=== PATIENT | male | born 1960 | race Caucasian/White ===

== ENCOUNTER 2021-03-14 02:37 | Outpatient (RCR) | payer OTHER, SELFPAY ==
[2021-03-07] MEDS: Normal Saline Flush 10 ML SYR IVP (10:12)
[2021-03-07] MEDS: Heparin 500 UNITS/5 ML SYRINGE IV (10:12)
[2021-03-07 10:24] LABS: Abs Immature Grans 1.81 10^3/uL (0.0-0.06); HCT 41.6 % (40.0-50.0); HGB 13.4 g/dL (13.5-17.5); MCH 28.5 pg (27.0-33.0); MCHC 32.2 % (32.0-36.0); MCV 88.3 fL (80-95); Nucleated RBC 0 %; Platelet Count 242 10^3/uL (130-400); RBC 4.71 10^6/uL (4.36-5.78); RDW 12.9 % (11.8-14.1); WBC 14.29 10^3/uL (4.4-10.8)
[2021-03-07 10:36] LABS: ALT 40 U/L (16-63); AST 16 U/L (15-37); Albumin 3.7 g/dL (3.4-5.0); Alkaline Phosphatase 112 U/L (46-116); Anion Gap 9.2 mmol/L (3-11); BUN 17 mg/dL (7-18); Bilirubin, Total 0.2 mg/dL (0.2-1.0); CO2 27.8 mmol/L (21.0-32.0); CREATININE 1.1 mg/dL (0.70-1.30); Calcium 9.2 mg/dL (8.5-10.1); Chloride 104 mmol/L (98-107); Glucose 96 mg/dL (74-106); Potassium 4.1 mmol/L (3.5-5.1); Sodium 141 mmol/L (136-145); Total Protein 7.4 g/dL (6.4-8.2)
[2021-03-07 10:49] LABS: Absolute Lymphocyte Count 0.57 10^3/uL (1.2-3.4); Bands % 9
[2021-03-07 10:50] LABS: Absolute Monocyte Count 1.29 10^3/uL (0.1-0.8); Diff Comment Manual Differential; Metamyelocytes % 3; Polychromasia Present
[2021-03-07 11:40] LABS: LDH 197 U/L (85-227)
== END 2021-03-22 23:59 | disposition home or self-care (01) ==
LOC: INF 02:37
PROVIDERS: PCP Emergency Medicine; Visit Provider Nurse Practitioner Adult Health
DX: C83.30 Diffuse large B-cell lymphoma, unspecified site (principal)
CPT/HCPCS: 36591; 80053; 83615; 85025

== ENCOUNTER 2021-04-13 17:26 | Emergency (ER) | payer OTHER, SELFPAY ==
[2021-04-13 17:35] VITALS: BP 153/82; PULSE 68; RESP 28; TEMP 36.1; O2SAT 100
--- NOTE | 2021-04-13 17:50 | ED.GENADUL_ITS ---
Discharge Plan Disposition Patient Disposition: HOME Condition: Stable Discharge Details Clinical Impression: Back pain, Muscle spasm Primary Care Provider: Wilbert Doan ED Provider: Jarrett Briggs Home Meds and New Rx's Prescriptions: New oxycodone 5 mg tablet 5 mg PO Q6H PRNQty: 8 RF: 0 Continued Symbicort 80-4.5 mcg/actuation HFA aerosol inhaler 2 puff IH BID RF: 0 Qvar 8.7 GM aerosol 1 puff Inhalation BID RF: 0 albuterol sulfate [ProAir HFA] 90 mcg/actuation HFA aerosol inhaler 1 - 2 puff Inhalation Q4H PRN Qty: 3 RF: 6 prednisone 20 mg tablet 20 mg PO DAILY Qty: 5 RF: 4 cyclobenzaprine 10 mg tablet 10 mg PO PRN PRNRF: 0 lorazepam 0.5 mg tablet 0.5 mg PO PRN PRNRF: 0 Discharge Instructions Instructions: Muscle Spasm (ED) Additional Instructions: You were likely suffering from muscle spasms that could be due to the new injection medicine you started discuss with your oncologist if you should continue this medicine if you feel more ill, have severe worsening pain or fevers return to the emergency department do not take the flexeril with the oxycodone if you take this medicine Medical Decision Making 60 yo male with hx of lymphoma htn, hld, who comes in with complaints of back muscle spasms. He states yesterday he had his first shot of filgrastim and had some body aches but pushed through it. He again had a shot today and shortly after started to have sharp pains in mid back from lower lumbar region to the upper back. Denies falls or trauma and describes the pain as a spasm. He denies fevers, chills, weakness, chest pain, dyspnea, numbness, difficulty urinating. He has intermittent episodes of pain lasting a few seconds on exam. He has no abdominal tenderness, Clear lungs and no murmurs. He has no visible or palpable deformities of the back. The pain is of the paraspinous muscles and has some tenderness with palpation to them. No cva tenderness. Has no saddle anesthesia. Per up todate filgrastim can have muscle spasms as a side effect in over 5% of patients. His symptoms do seem most consistent with this. His history and exam are not consistent with fracture, osteomyelitis, cauda equina or spinal epidural abscess so do not feel ct, xray or mri indicated at present time. Will check for electrolyte abnormalities and possible rhabdo. He has tried flexeril and ativan (he states the ativan is normally for nausea) without relief so will try a dose of dilaudid. pt's labs show no acute abnormalities, and his pain is now a 0 and has no other symptoms. He is stable for d/c, advised to discuss with his oncologist if he should have another dose of the medicine that may have caused the spasms. Will prescribe short course of oxycodone due to the pain and status as a cancer patient. Return precautions given Differential Diagnosis Differential Diagnosis: muscle spasm, strain, rhabdo Medical Records Medical records reviewed: Yes I reviewed the patient's medical records. Lab Data Lab results reviewed: Yes I reviewed the patient's lab results. HPI General Mode of arrival: ambulatory . Date/Time Provider Initiated Documentation: 04/13/21 17:41 . Limitations to Documentation: no limitations . Information obtained by: patient . History of Present Illness 60 year old M presents to the emergency department with the chief complaint of muscle spasm, described as moderate, Patient reports no radiation. Patient started experiencing this hour(s) (3) and it has been constant. No relieving factors improve symptom(s), No exacerbating factors reported . Patient notes no other symptoms.. Related Data Home Medications Medication Instructions Recorded Confirmed Qvar 1 puff INHALATION BID inhaler 09/26/15 12/25/18 budesonide-formoterol HFA 80 2 puff IH BID 12/25/18 12/25/18 mcg-4.5 mcg/actuation aerosol inhaler albuterol sulfate 90 mcg/actuation 1 - 2 puff INHALATION Q4H PRN #3 09/14/19 aerosol inhaler inhaler prednisone 20 mg tablet 20 mg PO DAILY #5 tab-cap 09/14/19 cyclobenzaprine 10 mg PO PRN PRN 04/13/21 04/13/21 lorazepam 0.5 mg PO PRN PRN 04/13/21 04/13/21 oxycodone 5 mg PO Q6H PRN #8 tab 04/13/21 Previous Rx's Medication Instructions Recorded albuterol sulfate 90 mcg/actuation 1 - 2 puff INHALATION Q4H PRN #3 09/14/19 aerosol inhaler inhaler prednisone 20 mg tablet 20 mg PO DAILY #5 tab-cap 09/14/19 oxycodone 5 mg PO Q6H PRN #8 tab 04/13/21 Allergies Allergy/AdvReac Type Severity Reaction Status Date / Time amoxicillin trihydrate AdvReac Unknown INTOLERANT Verified 12/25/18 09:40 [From Augmentin] potassium clavulanate AdvReac Unknown INTOLERANT Verified 12/25/18 09:40 [From Augmentin] General Stated Complaint: GenMedical HAYLEY: 3 Review of Systems All systems reviewed & are unremarkable except as noted in HPI and below Constitutional Constitutional: Denies chills, Denies fever(s) and Denies weakness Cardiovascular Cardiovascular: Denies chest pain and Denies dyspnea Respiratory Respiratory: Denies cough and Denies dyspnea Gastrointestinal Gastrointestinal: Denies abdominal pain, Denies nausea and Denies vomiting Musculoskeletal Musculoskeletal: Denies joint swelling Neurologic Neurologic: Denies weakness Psychiatric Psychiatric: Denies depression PFSH Medical History (Updated 04/13/21 @ 19:37 by Jarrett Briggs MD) Hyperlipidemia Hypertension Surgical History (Updated 12/21/18 @ 16:54 by Sherry Hoskins) Bronchoscopy (09/27/14) Repair of umbilical hernia Rotator Cuff Repair LEFT X 2 Social History Smoking/Tobacco Use Status: Former Tobacco Use Smoking risk assessment performed?: Yes Alcohol Intake: never Drug use: Never Substance use type: does not use Do you feel safe at home: Yes Do you feel safe in your relationship?: Yes Exam Const General: other (in pain) Orientation: alert HENMT Head: normal to inspection Ears: external ears normal General nose exam: external nose normal Mouth: moist mucous membranes Eyes General: appearance normal, both eyes and all related structures Neck Neck: normal visual inspection Resp Effort & Inspection: normal respiratory effort and able to speak in complete sentences Cardio Rate: regular rate GI Palpation: soft and nontender Back/Spine/Pelvis Back: no CVA tenderness Skin General skin exam: no rashes or lesions noted Neuro General: patient alert and patient oriented x3 Extrem General: normal to inspection Psych Mental Status: mental status grossly normal Course Vital Signs Vital signs: Vital Signs Temperature 36.1 C L 04/13/21 17:35 Pulse 68 04/13/21 17:35 Respiratory Rate 28 H 04/13/21 17:35 Blood Pressure 153/82 H 04/13/21 17:35 Pulse Oximetry 100 04/13/21 17:35 Temperature 36.1 C L 04/13/21 17:35 Temperature Source Temporal Artery Scan 04/13/21 17:35 Pulse 68 04/13/21 17:35 Respiratory Rate 28 H 04/13/21 17:35 Respiratory Depth Normal 04/13/21 17:47 Respiratory Pattern Tachypnea 04/13/21 17:47 Blood Pressure 153/82 H 04/13/21 17:35 Blood Pressure Position Supine 04/13/21 17:35 Pulse Oximetry 100 04/13/21 17:35 Oxygen Delivery Method Room Air 04/13/21 17:35 Oxygen Flow Rate 0 04/13/21 17:35 Pain Level 04/13/21 17:35
[2021-04-13] MEDS: Normal Saline 1,000 ML 1000 ML IV (18:13)
[2021-04-13] MEDS: HYDROmorphone 2 MG/ML VIAL 1 MG IVP ×2 (18:17→18:56)
[2021-04-13 18:18] LABS: HCT 34.2 % (40.0-50.0); HGB 11.1 g/dL (13.5-17.5); MCH 28.3 pg (27.0-33.0); MCHC 32.5 % (32.0-36.0); MCV 87.2 fL (80-95); MPV 13.3 fL (8.0-11.0); Nucleated RBC 2 %; Platelet Count 161 10^3/uL (130-400); RBC 3.92 10^6/uL (4.36-5.78); RDW 16.4 % (11.8-14.1); RDW-SD 51.8 fL; WBC 3.12 10^3/uL (4.4-10.8)
[2021-04-13 18:46] LABS: ALT 22 U/L (16-63); AST 18 U/L (15-37); Albumin 3.3 g/dL (3.4-5.0); Alkaline Phosphatase 87 U/L (46-116); Anion Gap 8.7 mmol/L (3-11); BUN 13 mg/dL (7-18); Bilirubin, Total 0.8 mg/dL (0.2-1.0); CO2 27.3 mmol/L (21.0-32.0); CREATININE 0.9 mg/dL (0.70-1.30); Calcium 8.8 mg/dL (8.5-10.1); Chloride 107 mmol/L (98-107); Creatine Kinase 31 U/L (39-308); Glucose 80 mg/dL (74-106); Magnesium 1.7 mg/dL (1.8-2.4); Potassium 3.7 mmol/L (3.5-5.1); Sodium 143 mmol/L (136-145); Total Protein 6.5 g/dL (6.4-8.2)
[2021-04-13] MEDS: Ketorolac 15 MG/ML VIAL IVP (18:56)
[2021-04-13 19:12] LABS: Absolute Neutrophil Count 0.59 10^3/uL (1.2-6.7); Atypical Lymphocytes % 2; Bands % 3
[2021-04-13 19:13] LABS: Absolute Basophil Count 0.12 10^3/uL (0.0-0.2); Absolute Eosinophil Count 0.28 10^3/uL (0.0-0.7); Absolute Lymphocyte Count 1.53 10^3/uL (1.2-3.4); Absolute Monocyte Count 1.47 10^3/uL (0.1-0.8)
[2021-04-13 19:14] LABS: Anisocytosis 1+; Basophilic Stippling 1+; Diff Comment Manual Differential; Polychromasia Present
[2021-04-13] MEDS: Heparin 500 UNITS/5 ML SYRINGE (20:15)
[2021-04-13] MEDS: Normal Saline-STERILE FIELD 0.9% 10 ML SYR (20:15)
[2021-04-13] MEDS: Ondansetron O.D.T. 4 MG TABEF, 3 TABS/BTL 12 MG (20:16)
[2021-04-13 20:17] VITALS: BP 153/82; PULSE 68; RESP 28; TEMP 36.1; O2SAT 100
== END 2021-04-13 19:50 | disposition home or self-care (01) ==
PROVIDERS: Emergency Provider Emergency Medicine; PCP Emergency Medicine
DX: M62.830 Muscle spasm of back (principal); M54.6 Pain in thoracic spine
CPT/HCPCS: 80053; 82550; 96361; 96374; 96375; 96376; 99284; 83735; 85025; 99283; J1885

== ENCOUNTER 2021-04-18 03:45 | Outpatient (RCR) | payer OTHER, SELFPAY ==
[2021-04-04] MEDS: Normal Saline Flush 10 ML SYR IVP (07:10)
[2021-04-04 07:17] LABS: HCT 36.6 % (40.0-50.0); HGB 11.8 g/dL (13.5-17.5); MCH 28.4 pg (27.0-33.0); MCHC 32.2 % (32.0-36.0); MCV 88.2 fL (80-95); MPV 13.5 fL (8.0-11.0); Nucleated RBC 0 %; RBC 4.15 10^6/uL (4.36-5.78); RDW 15.7 % (11.8-14.1); RDW-SD 46.6 fL; WBC 5.83 10^3/uL (4.4-10.8)
[2021-04-04 07:38] LABS: ALT 25 U/L (16-63); AST 19 U/L (15-37); Albumin 3.4 g/dL (3.4-5.0); Alkaline Phosphatase 83 U/L (46-116); Anion Gap 8.2 mmol/L (3-11); BUN 18 mg/dL (7-18); Bilirubin, Total 0.4 mg/dL (0.2-1.0); CO2 26.8 mmol/L (21.0-32.0); CREATININE 0.8 mg/dL (0.70-1.30); Chloride 106 mmol/L (98-107); Glucose 118 mg/dL (74-106); LDH 210 U/L (85-227); Sodium 141 mmol/L (136-145); Total Protein 6.9 g/dL (6.4-8.2)
[2021-04-04 07:59] LABS: Absolute Lymphocyte Count 0.12 10^3/uL (1.2-3.4); Absolute Monocyte Count 0.52 10^3/uL (0.1-0.8); Absolute Neutrophil Count 5.01 10^3/uL (1.2-6.7); Atypical Lymphocytes % 1; Bands % 10; Metamyelocytes % 3
[2021-04-04 08:00] LABS: Diff Comment Manual Differential; Platelet Count 153 10^3/uL (130-400); RBC Morphology Normal
[2021-04-11] MEDS: Normal Saline Flush 10 ML SYR IVP (08:37)
[2021-04-11 09:07] LABS: Abs Immature Grans 0.06 10^3/uL (0.0-0.06); HCT 35.5 % (40.0-50.0); HGB 11.6 g/dL (13.5-17.5); MCH 28.5 pg (27.0-33.0); MCHC 32.7 % (32.0-36.0); MCV 87.2 fL (80-95); Nucleated RBC 0 %; Platelet Count 162 10^3/uL (130-400); RBC 4.07 10^6/uL (4.36-5.78); RDW-SD 51.3 fL
[2021-04-11 09:20] LABS: ALT 24 U/L (16-63); AST 16 U/L (15-37); Albumin 3.4 g/dL (3.4-5.0); Alkaline Phosphatase 83 U/L (46-116); BUN 12 mg/dL (7-18); Bilirubin, Total 0.7 mg/dL (0.2-1.0); CREATININE 0.9 mg/dL (0.70-1.30); Calcium 8.9 mg/dL (8.5-10.1); Chloride 107 mmol/L (98-107); Glucose 120 mg/dL (74-106); LDH 163 U/L (85-227); Potassium 3.6 mmol/L (3.5-5.1); Sodium 143 mmol/L (136-145); Total Protein 6.7 g/dL (6.4-8.2)
[2021-04-11 09:25] LABS: WBC 1.35 10^3/uL (4.4-10.8)
[2021-04-11 09:42] LABS: Bands % 1
[2021-04-11 09:43] LABS: Absolute Eosinophil Count 0.11 10^3/uL (0.0-0.7); Absolute Lymphocyte Count 0.23 10^3/uL (1.2-3.4); Absolute Monocyte Count 0.81 10^3/uL (0.1-0.8); Atypical Lymphocytes % 3
[2021-04-11 09:47] LABS: Anisocytosis 1+; Basophilic Stippling 1+; Diff Comment Manual Differential
[2021-04-18] MEDS: Normal Saline Flush 10 ML SYR IVP (08:33)
[2021-04-18 08:46] LABS: Abs Immature Grans 0.23 10^3/uL (0.0-0.06); Absolute Basophil Count 0.05 10^3/uL (0.0-0.2); Absolute Eosinophil Count 0.16 10^3/uL (0.0-0.7); Absolute Lymphocyte Count 0.54 10^3/uL (1.2-3.4); Absolute Monocyte Count 1.45 10^3/uL (0.1-0.8); Eosinophils % 3.3; HCT 37.2 % (40.0-50.0); HGB 12.1 g/dL (13.5-17.5); Immature Grans % 4.8; Lymphocytes % 11.2; MCH 28.4 pg (27.0-33.0); MCHC 32.5 % (32.0-36.0); MCV 87.3 fL (80-95); MPV 12.4 fL (8.0-11.0); Neutrophils % 49.7; Nucleated RBC 0 %; Platelet Count 171 10^3/uL (130-400); RBC 4.26 10^6/uL (4.36-5.78); RDW 16.2 % (11.8-14.1); RDW-SD 51.7 fL; WBC 4.83 10^3/uL (4.4-10.8)
[2021-04-18 08:58] LABS: ALT 28 U/L (16-63); AST 22 U/L (15-37); Albumin 3.3 g/dL (3.4-5.0); Alkaline Phosphatase 89 U/L (46-116); BUN 16 mg/dL (7-18); Bilirubin, Total 0.5 mg/dL (0.2-1.0); CREATININE 0.8 mg/dL (0.70-1.30); Calcium 8.8 mg/dL (8.5-10.1); Chloride 106 mmol/L (98-107); Glucose 112 mg/dL (74-106); Sodium 142 mmol/L (136-145); Total Protein 6.7 g/dL (6.4-8.2)
== END 2021-04-22 23:59 | disposition home or self-care (01) ==
LOC: INF 03:45
PROVIDERS: PCP Emergency Medicine; Visit Provider Nurse Practitioner Adult Health
DX: C83.39 Diffuse large B-cell lymphoma, extranodal and solid organ sites (principal); Z45.2 Encounter for adjustment and management of vascular access device
CPT/HCPCS: 36591; 80053; 83615; 85025

== ENCOUNTER 2021-05-03 01:38 | Outpatient (RCR) | payer OTHER, SELFPAY ==
[2021-05-03] MEDS: Normal Saline Flush 10 ML SYR IVP (08:16)
[2021-05-03] MEDS: Heparin 500 UNITS/5 ML SYRINGE IV (08:17)
[2021-05-03 08:36] LABS: Abs Immature Grans 0.99 10^3/uL (0.0-0.06); HCT 33.8 % (40.0-50.0); HGB 11.2 g/dL (13.5-17.5); MCH 28.7 pg (27.0-33.0); MCHC 33.1 % (32.0-36.0); MCV 86.7 fL (80-95); MPV 11.6 fL (8.0-11.0); Nucleated RBC 0 %; RDW 15.9 % (11.8-14.1); RDW-SD 48.6 fL
[2021-05-03 08:54] LABS: Albumin 3.3 g/dL (3.4-5.0); BUN 11 mg/dL (7-18); Calcium 8.9 mg/dL (8.5-10.1); Glucose 115 mg/dL (74-106)
[2021-05-03 08:55] LABS: ALT 25 U/L (16-63); AST 13 U/L (15-37); Alkaline Phosphatase 96 U/L (46-116); Anion Gap 8.9 mmol/L (3-11); Bilirubin, Total 0.5 mg/dL (0.2-1.0); CO2 27.1 mmol/L (21.0-32.0); Chloride 104 mmol/L (98-107); LDH 226 U/L (85-227); Potassium 4.1 mmol/L (3.5-5.1); Sodium 140 mmol/L (136-145)
[2021-05-03 09:23] LABS: Absolute Neutrophil Count 6.69 10^3/uL (1.2-6.7); Bands % 3; Platelet Count 340 10^3/uL (130-400)
[2021-05-03 09:24] LABS: Absolute Basophil Count 0.18 10^3/uL (0.0-0.2); Absolute Eosinophil Count 0.09 10^3/uL (0.0-0.7); Absolute Lymphocyte Count 0.35 10^3/uL (1.2-3.4); Absolute Monocyte Count 0.97 10^3/uL (0.1-0.8); Basophilic Stippling Present; Diff Comment Manual Differential; Metamyelocytes % 6; Polychromasia Present
== END 2021-05-22 23:59 | disposition home or self-care (01) ==
LOC: INF 01:38
PROVIDERS: PCP Emergency Medicine; Visit Provider Nurse Practitioner Adult Health
DX: C83.39 Diffuse large B-cell lymphoma, extranodal and solid organ sites (principal)
CPT/HCPCS: 36591; 80053; 83615; 85025

== ENCOUNTER 2022-11-12 07:08 | Emergency (ER) | payer BC, SELFPAY ==
[2022-11-12 07:11] VITALS: BP 120/89; PULSE 50; RESP 20; TEMP 37.3; O2SAT 98
--- NOTE | 2022-11-12 07:15 | DI.CT_ITS ---
Exam(s) CT CHEST PE CTA EXAM: CT CHEST PE CTA CLINICAL HISTORY: cough, sob, hx NH Lymphoms, r/o pneumonia/PE. TECHNIQUE: Imaging Protocol: Axial CT angiography was performed with multi-slice acquisition and mu lti-planar and/or 3D reconstructions. CONTRAST MATERIAL: Intravenous: Omnipaque 350 contrast volume:100 mL COMPARISON: CT ABD PELVIS WITH CONTRAST from 06/12/2011 CT CHEST HIGH RESOLUTION from 09/08/2014 FINDINGS: Tracheobronchial tree: Patent where visualized. Pulmonary parenchyma: No consolidation or dominant measurable mass. There are calcified granuloma pre sent. The patient has had a prior lobectomy. Pulmonary Arteries: No evidence of filling defect to suggest pulmonary emboli. Mediastinum and [place]: No dominant adenopathy or fluid collection. The esophagus is unremarkable. Visualized thyroid gland: Unremarkable. Pleura: No effusion or pneumothorax. Heart: The heart is not dilated. Moderate coronary artery calcification is present. No pericardial e ffusion. Aorta: Thoracic aorta non-dilated. No evidence of dissection. Upper abdomen: Unremarkable. Soft tissues: Unremarkable. Bones: Within normal limits for the patient's age. IMPRESSION: 1. No evidence of pulmonary embolism, thoracic aortic dissection or aneurysm. 2. Findings were discussed with the emergency department at 9:12 a.m. on 11/12/2022. RADIATION DOSE DELIVERED: 506.5mGy.cm Total DLP DATA REPOSITORY: All CT scans at this facility are submitted to the National Radiology Data Registry (NRDR) Dose Index Registry (DIR) with the [employer] (A[employer]). RADIATION OPTIMIZATION: All CT scans at this facility use at least one of these dose optimization te chniques: automated exposure control; mA and/or kV adjustment per patient size (includes targeted exa ms where dose is matched to clinical indication); or iterative reconstruction.
--- NOTE | 2022-11-12 07:15 | RT.EKG_ITS ---
APPROVED REPORT Exam: Resting ECG Reason for Exam: sob Patient Location: E HR:65 bpm ECG Measurements Heart Rate 65 AXIS SC 158 P 51 QRSd 102 QRS -14 QT 398 T 141 QTc 396 Conclusion Sinus bradycardia...rate< 60 Multiple ventricular premature complexes...V complexes w/ short R-R intervls Nonspecific repol abnormality, lateral leads...ST dep, T neg, I aVL V5 V6 Physicianb: no stemi
[2022-11-12] MEDS: Albuterol/Ipratropium 3 ML UPD VIAL UPD (07:31)
--- NOTE | 2022-11-12 07:37 | W.ED.GENAD ---
Discharge Plan Discharge Details Chief Complaint: RespSymp Clinical Impression: Cough, Acute dyspnea Primary Care Provider: Rayray Rojas ED Provider: Garcia Valero Home Meds and New Rx's Prescriptions: No Action Symbicort 80-4.5 mcg/actuation HFA aerosol inhaler 2 puff IH BID Qvar 8.7 GM aerosol 1 puff Inhalation BID albuterol sulfate [ProAir HFA] 90 mcg/actuation HFA aerosol inhaler 1 - 2 puff Inhalation Q4H PRN Qty: 3 6RF prednisone 20 mg tablet 20 mg PO DAILY Qty: 5 4RF Rx Instructions: not taking anymore cyclobenzaprine 10 mg tablet 10 mg PO PRN PRN lorazepam 0.5 mg tablet 0.5 mg PO PRN PRN Patient Comments: TAKE 1 TABLET BY MOUTH EVERY 6 HOURS NEEDED FOR NAUSEA Rx Instructions: not taking anymore oxycodone 5 mg tablet 5 mg PO Q6H PRNQty: 8 0RF Rx Instructions: not taking anymore Dupixent Pen 300 mg/2 mL pen injector See Rx Instructions .ROUTE .COMPLEX Rx Instructions: 300 mg subcutaneously bi-weekly Medical Decision Making This is a very pleasant 62-year-old male with a past medical history of being a previous smoker, but having quit over 12 years ago, non-Hodgkin's lymphoma which was treated with chemotherapy and is in remission. He presents today for evaluation of cough, shortness of breath and fever. States that these symptoms have been present for the last few days. He denies noting significant productive with the cough. He does admit to pain with breathing which she describes as feeling like there is still wall in his lungs. He denies history of blood clot or PE. He denies any history of heart attack. He denies any tearing or ripping sensation in his chest. He denies any heaviness in his chest. No other complaints at this time. Patient's is sick with similar mild upper respiratory infection. Patient has received his COVID booster within the last 6 months. Exam demonstrates well-appearing male, vital signs stable. Mildly elevated temperature at 37.3, no hypoxemia. Lungs demonstrate mild wheeze with mild rhonchi. No calf tenderness. EKG shows no evidence of STEMI. Concern for PE and pneumonia. We will get CTA, laboratory work-up, evaluate for cardiac etiology, give a breathing treatment, monitor closely and reassess. Case will be signed out to my colleague Dr. Krishna for follow-up on labs and imaging. HPI General Date/Time Provider Initiated Documentation: 11/12/22 07:18. HPI Narrative: This is a very pleasant 62-year-old male with a past medical history of non-Hodgkin's lymphoma which was treated with chemotherapy and is in remission. He presents today for evaluation of cough, shortness of breath and fever. States that these symptoms have been present for the last few days. He denies noting significant productive with the cough. He does admit to pain with breathing which she describes as feeling like there is still wall in his lungs. He denies history of blood clot or PE. He denies any history of heart attack. He denies any tearing or ripping sensation in his chest. He denies any heaviness in his chest. No other complaints at this time. Patient's is sick with similar mild upper respiratory infection. Patient has received his COVID booster within the last 6 months. Related Data Home Medications Medication Instructions Recorded Confirmed beclomethasone dipropionate 40 1 puff inhalation BID 09/26/15 12/25/18 mcg/actuation aerosol inhaler (Qvar) budesonide-formoterol HFA 80 2 puff inhalation BID 12/25/18 12/25/18 mcg-4.5 mcg/actuation aerosol inhaler (Symbicort) albuterol sulfate 90 mcg/actuation 1 - 2 puff inhalation Q4H PRN ##3 09/14/19 11/12/22 aerosol inhaler (ProAir HFA) prednisone 20 mg tablet 20 mg PO DAILY #5 tab-caps 09/14/19 cyclobenzaprine 10 mg tablet 10 mg PO PRN PRN 04/13/21 04/13/21 lorazepam 0.5 mg tablet 0.5 mg PO PRN PRN 04/13/21 04/13/21 oxycodone 5 mg tablet 5 mg PO Q6H PRN #8 tabs 04/13/21 dupilumab 300 mg/2 mL subcutaneous See Rx Instructions .Route .COMPLEX 11/12/22 11/12/22 pen injector (Dupixent) Previous Rx's Medication Instructions Recorded albuterol sulfate 90 mcg/actuation 1 - 2 puff inhalation Q4H PRN ##3 09/14/19 aerosol inhaler (ProAir HFA) prednisone 20 mg tablet 20 mg PO DAILY #5 tab-caps 09/14/19 oxycodone 5 mg tablet 5 mg PO Q6H PRN #8 tabs 04/13/21 Allergies Allergy/AdvReac Type Severity Reaction Status Date / Time amoxicillin trihydrate AdvReac Unknown INTOLERANT Verified 11/12/22 07:19 [From Augmentin] potassium clavulanate AdvReac Unknown INTOLERANT Verified 11/12/22 07:19 [From Augmentin] General Stated Complaint: RespSymp HAYLEY: 3 Review of Systems All systems reviewed & are unremarkable except as noted in HPI and below PFSH All Active Problems Back pain (Acute) Muscle spasm (Acute) Cough (Acute) Acute dyspnea (Acute) Acne rosacea (Acute) Hearing loss (Acute) diminished hearing History of bronchoscopy (Acute) History of umbilical hernia repair (Acute 07/25/15) Hyperlipidemia (Acute) Hypertension (Acute) 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 Unknown, if any, significance Pneumonitis (Acute 02/17/15) idiopathic extensive workup Sciatica (Acute) recurrent left sided sciatica Status post rotator cuff repair (Acute) Medical History Hyperlipidemia Hypertension Surgical History Bronchoscopy (09/27/14) Repair of umbilical hernia Rotator Cuff Repair LEFT X 2 Social History Smoking/Tobacco Use Status: Former Tobacco Use Smoking risk assessment performed?: Yes Alcohol Intake: never Drug use: Never Substance use type: does not use Do you feel safe at home: Yes Do you feel safe in your relationship?: Yes Additional Social history: at bedside Exam Narrative Exam Narrative: 1.Const: Well-nourished, Well-developed, appearing stated age 2.Eyes: PERRL, no conjunctival injection, and symmetrical lids. 3.ENT: Atraumatic external nose and ears. Moist MM. Neck: Symmetric, trachea midline, No thyromegaly. 4.CVS: +S1/S2, No murmurs or gallops. Peripheral pulses 2+ and equal in all extremities. Brisk capillary refill in all extremities. 5.RESP: Unlabored respiratory effort. Mild scattered wheeze, mild scattered rhonchi. 6.GI: Soft, Nontender/Nondistended, No hepatosplenomegaly. No guarding or rebound. 7.MSK: Normocephalic/Atraumatic, Extremities w/o deformity or ttp No cyanosis or clubbing, Normal movement of all extremities 8.Skin: Warm, Dry. No rashes or lesions. 9.Neuro: airframe technician II-XII grossly intact. Sensation grossly intact, no focal neurologic deficits. 10.Psych: (AAO) x3. Appropriate mood and affect Course Vital Signs Vital signs: Vital Signs Temperature 37.3 C 11/12/22 07:11 Pulse 50 L 11/12/22 07:11 Respiratory Rate 20 11/12/22 07:11 Blood Pressure 120/89 11/12/22 07:11 Pulse Oximetry 98 11/12/22 07:11 Temperature 37.3 C 11/12/22 07:11 Temperature Source Oral 11/12/22 07:11 Pulse 50 L 11/12/22 07:11 Respiratory Rate 20 11/12/22 07:11 Respiratory Effort Short of Breath 11/12/22 07:32 Respiratory Depth Normal 11/12/22 07:23 Blood Pressure 120/89 11/12/22 07:11 Blood Pressure Position Sitting 11/12/22 07:11 Pulse Oximetry 98 11/12/22 07:11 Oxygen Delivery Method Room Air 11/12/22 07:11 Oxygen Flow Rate 0 11/12/22 07:11 Pain Level 4 11/12/22 07:11 Lab/Test Results Lab/Test Results: 11/12/22 07:26 Blood Blood Culture - Pending 11/12/22 07:26 Blood Blood Culture - Pending
[2022-11-12 07:56] LABS: BE (Venous) 4 mmol/L (-2-3); HCO3 (Venous) 28 mmol/L (23-28); O2 Sat (Venous) 68 %; TCO2 (Venous) 24 mmol/L (24-29); pCO2 (Venous) 39 mmHg (41-51); pH (Venous) 7.46 (7.31-7.41); pO2 (Venous) 32 mmHg
[2022-11-12 07:58] LABS: Abs Immature Grans 0.02 10^3/uL (0.0-0.06); Absolute Basophil Count 0.02 10^3/uL (0.0-0.2); Absolute Eosinophil Count 0.02 10^3/uL (0.0-0.7); Absolute Lymphocyte Count 0.68 10^3/uL (1.2-3.4); Absolute Monocyte Count 0.78 10^3/uL (0.1-0.8); Basophils % 0.3; Eosinophils % 0.3; HCT 46.3 % (40.0-50.0); Immature Grans % 0.3; Lymphocytes % 9.3; MCH 29.9 pg (27.0-33.0); MCHC 34.6 % (32.0-36.0); MCV 87 fL (80-95); MPV 11.3 fL (8.0-11.0); Monocytes % 10.7; Neutrophils % 79.1; Platelet Count 210 10^3/uL (130-400); RBC 5.35 10^6/uL (4.36-5.78); RDW-SD 40.9 fL; WBC 7.32 10^3/uL (4.4-10.8)
[2022-11-12 08:01] VITALS: PULSE 80; RESP 8; O2SAT 99
[2022-11-12 08:11] LABS: PTT Activated 23.4 sec (21.5-31.9); Prothrombin Time 10.5 sec (9.3-11.0)
[2022-11-12 08:19] LABS: ALT 24 U/L (16-63); AST 25 U/L (15-37); Albumin 3.8 g/dL (3.4-5.0); Alkaline Phosphatase 96 U/L (46-116); Anion Gap 8.7 mmol/L (3-11); BUN 16 mg/dL (7-18); Bilirubin, Total 1.1 mg/dL (0.2-1.0); CO2 27.3 mmol/L (21.0-32.0); CREATININE 1.1 mg/dL (0.70-1.30); Calcium 9.1 mg/dL (8.5-10.1); Chloride 102 mmol/L (98-107); Estimated GFR 74.96 (mL/min/1.73m2); Glucose 113 mg/dL (74-106); NT-proBNP 632 pg/mL (<300); Potassium 3.9 mmol/L (3.5-5.1); Sodium 138 mmol/L (136-145); Total Protein 7.7 g/dL (6.4-8.2); Troponin I < 50 ng/L (<or=60)
[2022-11-12 08:26] VITALS: PULSE 75; O2SAT 95
[2022-11-12 08:38] LABS: COVID-19 PCR Negative (Negative); Influenza A PCR Negative (Negative); Influenza B PCR Negative (Negative); RSV PCR Negative (Negative)
[2022-11-12 08:39] LABS: Source Nasopharynx
[2022-11-12] MEDS: Omnipaque 350 MG/ML 500 ML BTL-Imaging package IJ (08:44)
[2022-11-12] MEDS: Normal Saline - Diluent 50 ML VIAL IJ (08:44)
--- NOTE | 2022-11-12 09:20 | ED.PROG_ITS ---
Date of service: 11/12/22 Time of Service: 09:20 Medical Decision Making 62-year-old gentleman with history of asthma presents with cough and shortness of breath. Signed out to me pending CT chest and remainder of labs. Labs unremarkable and CT chest also unremarkable. Likely has a viral syndrome causing an asthma exacerbation. Offered him steroids and patient is agreeable to taking this. Says he still has his as needed inhalers at home. Doubt other causes of his symptoms. Will discharge with return precautions. Imaging Data Radiologic Study: Attestation: I personally reviewed and interpreted this imaging study as follows: Imaging: CT Scan (chest) Radiologist's impression: IMPRESSION: 1. No evidence of pulmonary embolism, thoracic aortic dissection or aneurysm.? 2. Findings were discussed with the emergency department at 9:12 a.m. on 11/12/2022. Lab Data Lab results reviewed: Yes I reviewed the patient's lab results. ECG Data Attestation: I personally reviewed and interpreted this ECG (s) as follows: Prior ECG tracings: available for review Interpretation: Normal sinus and otherwise unremarkable EKG Sign Out Sign Out Data: Sign Out Comment: Cough, shortness of breath, previous cancer patient. Follow- up on CTA and labs for potential pneumonia versus PE Last updated by Garcia Valero DO at 11/12/22 07:43 Discharge Plan Disposition Patient Disposition: Home Condition: Good Discharge Details Clinical Impression: Cough, Acute dyspnea, Acute viral syndrome, Asthma exacerbation Primary Care Provider: Rayray Rojas ED Provider: Dwight Briggs Home Meds and New Rx's Prescriptions: New prednisone 50 mg tablet 50 mg PO DAILY 5 Days Qty: 5 0RF Continued Symbicort 80-4.5 mcg/actuation HFA aerosol inhaler 2 puff IH BID Qvar 8.7 GM aerosol 1 puff Inhalation BID albuterol sulfate [ProAir HFA] 90 mcg/actuation HFA aerosol inhaler 1 - 2 puff Inhalation Q4H PRN Qty: 3 6RF cyclobenzaprine 10 mg tablet 10 mg PO PRN PRN lorazepam 0.5 mg tablet 0.5 mg PO PRN PRN Patient Comments: TAKE 1 TABLET BY MOUTH EVERY 6 HOURS NEEDED FOR NAUSEA Rx Instructions: not taking anymore oxycodone 5 mg tablet 5 mg PO Q6H PRNQty: 8 0RF Rx Instructions: not taking anymore Dupixent Pen 300 mg/2 mL pen injector See Rx Instructions .ROUTE .COMPLEX Rx Instructions: 300 mg subcutaneously bi-weekly Discontinued prednisone 20 mg tablet 20 mg PO DAILY Qty: 5 4RF Rx Instructions: not taking anymore Discharge Instructions Instructions: Asthma (ED), Viral Syndrome (ED) Additional Instructions: You were seen in the emergency department for cough and shortness of breath. We performed labs, EKG, CAT scan your chest that were unremarkable. You likely have a viral syndrome causing an asthma exacerbation. We have prescribed you a course of steroids. Take your as needed inhaler as prescribed. If using this more frequently than every 4 hours or if you have worsening shortness of breath or chest pain you should return right back to the emergency department. Otherwise follow-up with your primary care doctor.
[2022-11-12 09:36] VITALS: BP 128/80; PULSE 75; RESP 19; TEMP 36.8; O2SAT 99
--- NOTE | 2022-11-12 15:04 | NUR.NOTE ---
Nursing Note: Accessed pt chart to see if he was admitted or discharged. Lab called asking due to outstanding orders. They will cancel them.
== END 2022-11-12 09:39 | disposition home or self-care (01) ==
PROVIDERS: Student in an Organized Health Care Education/Training Program; Emergency Provider Student in an Organized Health Care Education/Training Program; PCP Nurse Practitioner Family
DX: R06.09 Other forms of dyspnea (principal); R05.1 Acute cough; R06.02 Shortness of breath; Z87.891 Personal history of nicotine dependence; Z85.72 Personal history of non-Hodgkin lymphomas
CPT/HCPCS: 36415; 71275; 80053; 82805; 87040; 87637; 93005; 94640; 99285; 81003; 83880; 84484; 85025; 85610; 85730; 93010; 99284; J7620

== ENCOUNTER 2023-05-19 07:12 | Day surgery (SDC) | payer BC, SELFPAY ==
--- NOTE | 2023-05-18 16:55 | W.PM.DSUDISC ---
Date of service: 05/19/23 Time of Service: 09:28 Discharge Plan Disposition Patient Disposition: Home Condition: Good Discharge Details Reason For Visit: Screening colonoscopy Attending Provider: Harpal Onofre Primary Care Provider: Rayray Rojas Home Meds and New Rx's Prescriptions: Continued loratadine [Claritin] 10 mg tablet 10 mg PO DAILY gabapentin 300 mg capsule 600 mg PO TID Qty: 120 3RF famotidine 40 mg tablet 40 mg PO DAILY Qty: 60 11RF albuterol sulfate [ProAir HFA] 90 mcg/actuation HFA aerosol inhaler 1 - 2 puff Inhalation Q4H PRN Qty: 3 6RF Discontinued bisacodyl [Dulcolax (bisacodyl)] 5 mg tablet,delayed release (DR/EC) 5 mg PO ONCE Qty: 4 0RF Rx Instructions: Take per colonoscopy instructions provided by ordering providers office polyethylene glycol 3350 17 gram/dose powder 17 g PO ONCE Qty: 238 0RF Rx Instructions: Take per colonoscopy instructions provided by ordering providers office Discharge Instructions Instructions: Colorectal Polyps (GEN) Additional Instructions: Jani, we were able to complete your colonoscopy today without any difficulty. Your prep was excellent. I did find 2 small polyps. I removed these both completely. They do not worry me at all. I will send them off to be tested by the pathologist to find out the nature of the polyps. Once I have that information, I will be in touch with recommendations for your next colonoscopy. If you have any questions in the meantime, please do not hesitate to call at any point 1. If tolerated, consume a soft, low fiber diet for 1-2 days. [address] Do not drive, drink alcohol, operate machinery, make critical decisions, or do activities that require coordination or balance for 24 hours. 3. Because air was put into your colon during the procedure, expelling air from your rectum (passing gas or farting) is normal. 4. You may not have a bowel movement for 1-3 days because of the colonoscopy prep. This is normal. 5. Go directly to the emergency room if you notice any of the following: Develop chills (warm to touch), or if you have a thermometer and your temperature is above 101 Difficulty breathing or difficultly swallowing Persistent vomiting Severe abdominal pain, other than gas cramps Severe chest pain Black, tarry stools Any bleeding ? exceeding one tablespoon 6. Call your physician if the site where your intravenous was started becomes red, swollen, painful, and warm to touch. 7. Your physician has reviewed your pre-procedure medications. Please continue to take those medications as previously ordered. You will be given specific information/education regarding any changes to your medications before leaving. Activity:: Activity as Tolerated Diet:: As Tolerated Discharge Orders Discharge Orders: Discharge Order (Routine); Ordered 05/18/23 Ordered By: Harpal Onofre DS: Diagnosis Discharge Diagnosis (1) Encounter for screening colonoscopy: Status: Acute Asessment and Plan: I will follow-up on polypectomy results
--- NOTE | 2023-05-18 16:58 | W.COLOREPORT ---
Date of service: 05/19/23 Time of Service: 09:33 Colonoscopy Report Date of procedure: 05/19/23 Pre-op diagnosis general: screening colonoscopy Post-op diagnosis procedure note: other (Colon polyps) Procedure: Colonoscopy with polypectomy Surgeon: Harpal Onofre Anesthesia Type: General:No Airway Estimated blood loss (mL): 10 Pathology: other (0.25 cm polyp at 90 cm, 0.25 cm polyp at 40 cm) Complications: None Disposition: same day Indications: Jani is 62 years old and he is here for his next screening colonoscopy as part of routine health maintenance. Prep: Miralax/Dulcolax Procedure Start Time: 08:57 Procedure End Time: 09:14 Retraction Time: 13 Findings: 0.25 cm polyp at 90 cm, 0.25 cm polyp at 40 cm Procedure Description: After the induction of monitored anesthetic care, and with the patient in left lateral decubitus position, I began by performing an external anorectal exam.? Perineum and skin were normal, as was the anal verge.? There was no evidence of external hemorrhoids.? Next, I performed a digital rectal exam.? I did not appreciate any abnormal findings.? Next, I advanced a colonoscope into the rectal vault.? I performed retroflexion.? This appeared normal.? Using insufflation, I then advanced the colonoscope beyond the rectal folds and into the sigmoid colon before advancing towards the cecum.? The quality of the prep was excellent.? The scope was noted to be in the cecum by identification of the ileocecal valve and appendiceal orifice.? I then began withdrawing the colonoscope using repeated irrigation as necessary for full evaluation of the colonic mucosa. Around 90 cm from the anal verge I identified a 0.25 cm polyp. ?It appeared sessile in character. ?I was able to remove this with a cold forcep polypectomy. ?I examined the site, and there was minimal bleeding. ?Once this was completed, I continued to withdraw the scope and examine the remainder of the colonic mucosa. ?I also found a 0.25 cm polyp at 40 cm from the anus. This was also removed with cold forceps. This polyp also appeared sessile in character. There was minimal bleeding from the polypectomy site. Once the scope was withdrawn to the level of the rectum, great care was taken to examine portions of the rectal folds.? Finally, the scope was withdrawn and the patient was brought to the same-day surgery recovery unit as the anesthetic wore off. ?The findings and instructions were shared with the patient prior to discharge. [place] Bowel Prep [place] Bowel Prep Right Colon: 3 Left Colon: 3 Transverse Colon: 3 Total Score: 9
[2023-05-19] MEDS: Lactated Ringers 1,000 ML 80 ML IV (07:40)
--- NOTE | 2023-05-19 08:18 | W.ANESPRE ---
General Info Date of Service Date Performed: 05/19/23 Height: 5 ft 8.11 in Weight: 107.246 kg Body Mass Index (BMI): 35.8 Surgical Procedure: Operation Date: 05/19/23 08:35 Proposed Procedure Side Surgeon irene Onofre MD Meds Allergies and Home Medications Allergies Allergy/AdvReac Type Severity Reaction Status Date / Time No Known Allergies Allergy Verified 05/19/23 07:30 Home Medication Medication Instructions Recorded albuterol sulfate 90 mcg/actuation 1 - 2 puff inhalation Q4H PRN ##3 09/14/19 aerosol inhaler (ProAir HFA) loratadine 10 mg tablet (Claritin) 10 mg PO DAILY 01/31/23 gabapentin 300 mg capsule 600 mg (2 x 300 mg) PO TID #120 03/17/23 caps famotidine 40 mg tablet 40 mg PO DAILY #60 tabs 05/05/23 Current Visit Medications: Current Medications Generic Name Dose Route Start Last Admin Trade Name Freq PRN Reason Stop Dose Admin Hyoscyamine Sulfate 0.125 mg 05/18/23 16:59 Hyoscyamine 0.125 Mg Sl/Oral/Chew SL 06/17/23 16:58 DIRECTED PRN Ringer's Solution 1,000 mls @ 80 mls/hr 05/19/23 06:00 05/19/23 07:40 IV 06/13/23 23:59 80 mls/hr INFUSION ESTELLE Administration IV Miscellaneous Supplies 1 each 05/19/23 06:00 Iv Access IV 06/13/23 23:59 DIRECTED ESTELLE Ondansetron HCl 4 mg 05/18/23 16:59 Ondansetron 4 Mg/2 Ml Vial IVP 06/17/23 16:58 Q4H PRN PRN Nausea / Vomiting Sodium Chloride 0 ml 05/19/23 06:00 Normal Saline Flush 10 Ml Syr IV 06/13/23 23:59 PRN PRN Sodium Chloride 0 ml 05/19/23 06:00 Normal Saline 10 Ml Vial IJ 06/13/23 23:59 DIRECTED PRN Sterile Water 0 ml 05/19/23 06:00 Water,Injection,Sterile 10 Ml Vial IJ 06/13/23 23:59 DIRECTED PRN PFSH Active Problems Active Problems: Problem Status Onset Code Encounter for screening colonoscopy Z12.11 Bronchiectasis J47.9 Asthma J45.909 History of lung cancer Z85.118 Cough R05.9 Acne rosacea L71.9 Hearing loss H91.90 History of bronchoscopy Z98.890 History of umbilical hernia repair 07/25/15 Z98.890, Z87.19 Hyperlipidemia E78.5 Hypertension I10 Monoclonal gammopathy 02/17/15 D47.2 Sciatica M54.30 Status post rotator cuff repair Z98.890 Medical History Medical History Non-Hodgkin's lymphoma Type B. Last received chemotherapy 2020 Asthma exacerbation Acute viral syndrome Acute dyspnea Muscle spasm Back pain Hypertension Pt. denies Hyperlipidemia Surgical History Surgical History History of lobectomy of lung Upper RIGHTlobe Rotator Cuff Repair LEFT X 2 Repair of umbilical hernia Bronchoscopy (09/27/14) Tobacco Smoking/Tobacco Use Status: Former Tobacco Use Smokeless tobacco user: other (pipe and cigar) Passive smoking exposure: Yes Alcohol Alcohol Intake: never Substance Use Substance use: Never Substance use type: does not use Vital Signs and Lab Results Lab Results Blood Type / Crossmatch: No Data to Display Complete Blood Count: No Data to Display Complete Metabolic Panel: No Data to Display Liver Function Panel: No Data to Display Coagulation Panel: No Data to Display Cardiac Panel: No Data to Display Arterial Blood Gas: No Data to Display Venous Blood Gas: No Data to Display Pancreas Panel: No Data to Display Thyroid Panel: No Data to Display Infectious Disease: No Data to Display Blood Cultures: No Data to Display Toxicology Panel: No Data to Display Anesthesia Assessment and Plan Anesthesia History Personal History: No History of Anesthesia Complications Family History: No Family History of Anesthesia Complications Exercise Tolerance Exercise Tolerance: Metabolic Equivalents>4 Pertinent Negatives Pertinent Negatives: No Symptoms of GERD, No Major Cardiovascular Symptoms or Complaints and No History of CVA/TIA Cardiac & Pulmonary Exam Cardiac Exam: Normal S1/S2 Heart Sounds (Some irregularity, appears to be be PACs on 3lead monitor) Pulmonary Exam: Clear Bilateral Breath Sounds Implantable Cardiac Device Does patient have a Pacemaker or an ICD?: No Airway Exam Known Difficult Airway: No Mallampati Class: 2 Mouth Opening: Normal (> 3cm) Thyromental Distance: Greater than 3 cm Neck Range of Motion: Full ROM Neck Circumference: Normal Teeth Condition: Normal Dentition ASA Classification ASA Score: ASA 2 Emergency Case?: No NPO Status NPO Status: NPO Clears >2 hours, Solids >8 hours Anesthesia Plan Resuscitation Status: Full Code Anesthesia Technique: General Anesthesia Airway Planned: Natural Airway Monitors Used: Standard Monitors
[2023-05-19 08:52] VITALS: BMI 35.8
--- NOTE | 2023-05-19 09:02 | BOWEL_PTH ---
PATIENT: Jani Harman LOC: [facility] U#:[id number] AGE/SX: 62/M ROOM: RE05/19/[address]: Harpal Onofre MD : 1960 BED: DIS: 05/19/2023 SPEC #: [id number] RECD: 05/19/23 13:09 STATUS: YULIYA RE #: [id number] HOLLY: 05/19/23 09:[address]: Harpal Onofre DEPT: Surgical Specimen RECD BY: Lissy Magaña ENTERED: 05/19/23 13:10 SP TYPE: Bowel OTHR DR: Rayray Reddy, FEDE Tissues: 1 - BIOPSY BOWEL 2 - BIOPSY BOWEL Procedures: GROSS AND MICRO LEVEL 4 Comments: [id number]
[2023-05-19 09:39] VITALS: BP 131/81; PULSE 64; RESP 18; TEMP 36.6; O2SAT 98
--- NOTE | 2023-05-19 09:43 | W.ANESPOSTOP ---
Postoperative Evaluation Date, Time and Location Date Performed: 05/19/23 Time Performed: 09:40 Patient Location: Day Surgery Unit Vital Signs Most Recent Imported Vital Signs: Most Recent Vital Signs Temp Pulse Resp BP Pulse Ox 36.6 C 64 18 131/81 98 05/19/23 09:39 05/19/23 09:39 05/19/23 09:39 05/19/23 09:39 05/19/23 09:39 Pain Score Most Recent Pain Score: Most Recent Pain Score Pain Level 0 05/19/23 09:39 Assessment Mental Status: Awake (Alert & Oriented to Patient Baseline) Airway and Respiratory Function: Patent airway with normal (patient baseline) respiratory exam Cardiovascular Function: Hemodynamically Stable Hydration Status: Adequately Hydrated Nausea & Vomiting: No Nausea or Vomiting Pain: Pt. Denies Any Pain Peripheral Nerve Block: Patient did not receive a nerve block
== END 2023-05-19 07:13 | disposition home or self-care (01) ==
LOC: SUR 07:13
PROVIDERS: PCP Nurse Practitioner Family; Visit Provider Surgery
PROC: 0DJD8ZZ Inspection of Lower Intestinal Tract, Via Natural or Artificial Opening Endoscopic (ICD-10-PCS; CPT 45378; principal; 2023-05-19 08:30)
DX: Z12.11 Encounter for screening for malignant neoplasm of colon (principal); D12.3 Benign neoplasm of transverse colon; I10 Essential (primary) hypertension; D12.5 Benign neoplasm of sigmoid colon
CPT/HCPCS: 45380; 88305

== ENCOUNTER 2023-12-08 10:49 | Outpatient (REF) | payer BC, SELFPAY ==
[2023-12-08 12:40] LABS: ALT 31 U/L (16-63); AST 27 U/L (15-37); Albumin 3.6 g/dL (3.4-5.0); Alkaline Phosphatase 85 U/L (46-116); Anion Gap 11.6 mmol/L (3-11); BUN 18 mg/dL (7-18); Bilirubin, Total 0.5 mg/dL (0.2-1.0); CO2 24.4 mmol/L (21.0-32.0); Calcium 9.5 mg/dL (8.5-10.1); Calculated LDL 139 mg/dL (<100); Chloride 103 mmol/L (98-107); Cholesterol 225 mg/dL (<200); Estimated GFR 83.52 (mL/min/1.73m2); Glucose 96 mg/dL (74-106); HDL Cholesterol 51 mg/dL (40-60); Potassium 4.3 mmol/L (3.5-5.1); Sodium 139 mmol/L (136-145); Triglyceride 175 mg/dL (<150)
[2023-12-08 13:03] LABS: Hemoglobin A1C 5.9 % (<5.7)
[2023-12-09 10:55] LABS: Hepatitis C Ab w Rflx HCV PCR Negative (Negative)
== END 2023-12-08 10:50 | disposition home or self-care (01) ==
LOC: LBN 10:49
PROVIDERS: PCP Nurse Practitioner Family; Visit Provider Nurse Practitioner Family
DX: E78.5 Hyperlipidemia, unspecified (principal); R73.9 Hyperglycemia, unspecified; Z11.59 Encounter for screening for other viral diseases
CPT/HCPCS: 80053; 80061; 86803; 83036

== ENCOUNTER 2023-12-11 12:59 | Emergency (ER) | payer BC, SELFPAY ==
--- NOTE | 2023-12-11 12:45 | RT.EKG_ITS ---
APPROVED REPORT Exam: Resting ECG Reason for Exam: SOB Patient Location: E HR:56 bpm ECG Measurements Heart Rate 56 AXIS MO 172 P 23 QRSd 102 QRS -2 QT 530 T 4 QTc 497 Conclusion Sinus bradycardia...rate< 60 Atrial premature complex...SV complex w/ short R-R interval Probable left ventricular hypertrophy...multiple LVH criteria
[2023-12-11 12:51] VITALS: BP 170/77; PULSE 57; RESP 22; TEMP 36.6; O2SAT 98
[2023-12-11] MEDS: Prochlorperazine 10 MG/2 ML VIAL IVP (13:00)
--- NOTE | 2023-12-11 13:00 | DI.CT_ITS ---
Exam(s) CT ABDOMEN PELVIS W EXAM: CT ABDOMEN PELVIS W CLINICAL HISTORY: lower abdomen pain, n/v TECHNIQUE: Imaging Protocol: Axial computed tomography images with coronal and sagittal reformatted images were created and reviewed. CONTRAST MATERIAL: Intravenous: Omnipaque 350 Contrast volume:100 mL Oral: No COMPARISON: CT CT CHEST PE CTA from 11/12/2022 FINDINGS: ABDOMEN: Lung Bases: Coronary artery calcifications are present. No acute pulmonary process is present. Liver: Normal density. No measurable mass. Portal, Superior Mesenteric, and Splenic Veins: Unremarkable. Gallbladder and Biliary Tract: No radiodense calculus or dilation. Pancreas: Normal density, no abnormal calcifications or inflammatory process. Spleen: Normal. Adrenals: No masses seen. Kidneys: Normal size, contour and axis. There is a 3 mm stone at the left UVJ causing mild hydronephr osis. No masses seen. Abdominal Aorta: Abdominal portion non-dilated. Atherosclerotic calcification is present. Bowel: There is diverticulosis of the colon without evidence of acute diverticulitis. There is no ev idence of bowel obstruction or bowel wall thickening. There is a diverticulum seen in the duodenum a djacent to the head of the pancreas. Appendix is unremarkable. Peritoneal Cavity: No ascites, collection or mesenteric inflammatory response. No free air. Lymph Nodes: Within normal limits. Bones: Within normal limits for the patient's age. Soft Tissues: Small fat containing umbilical hernia. PELVIS: Bladder: The urinary bladder is incompletely distended limiting evaluation. Reproductive Organs: The prostate gland is moderately enlarged. Lymph Nodes: Within normal limits. Bones: Within normal limits for the patient's age. IMPRESSION: 3 mm left UVJ stone causing mild hydronephrosis. RADIATION DOSE DELIVERED: 1,237.32mGy.cm Total DLP DATA REPOSITORY: All CT scans at this facility are submitted to the National Radiology Data Registry (NRDR) Dose Index Registry (DIR) with the [employer] (ACR). RADIATION OPTIMIZATION: All CT scans at this facility use at least one of these dose optimization te chniques: automated exposure control; mA and/or kV adjustment per patient size (includes targeted exa ms where dose is matched to clinical indication); or iterative reconstruction.
[2023-12-11 13:03] LABS: Abs Immature Grans 0.06 10^3/uL (0.0-0.06); Absolute Basophil Count 0.04 10^3/uL (0.0-0.2); Absolute Eosinophil Count 0.01 10^3/uL (0.0-0.7); Absolute Lymphocyte Count 0.86 10^3/uL (1.2-3.4); Absolute Monocyte Count 0.41 10^3/uL (0.1-0.8); Absolute Neutrophil Count 10.94 10^3/uL (1.2-6.7); Basophils % 0.3 %; Eosinophils % 0.1 %; HCT 46.1 % (40.0-50.0); HGB 15.6 g/dL (13.5-17.5); Immature Grans % 0.5 %; MCH 30.1 pg (27.0-33.0); MCHC 33.8 % (32.0-36.0); MCV 89 fL (80-95); MPV 11.7 fL (8.0-11.0); Monocytes % 3.3 %; Neutrophils % 88.8 %; Platelet Count 324 10^3/uL (130-400); RBC 5.19 10^6/uL (4.36-5.78); RDW 12.7 % (11.8-14.1); RDW-SD 41.2 fL; WBC 12.32 10^3/uL (4.4-10.8)
[2023-12-11 13:10] LABS: BE (Venous) -6 mmol/L (-2-3); HCO3 (Venous) 17 mmol/L (23-28); O2 Sat (Venous) 97 %; TCO2 (Venous) 15 mmol/L (24-29); pCO2 (Venous) 22 mmHg (41-51); pO2 (Venous) 80 mmHg
[2023-12-11 13:12] LABS: Lactate 2.5 mmol/L (0.6-1.4)
--- NOTE | 2023-12-11 13:17 | ED.GENADUL_ITS ---
Discharge Plan Disposition Patient Disposition: Home Condition: Stable Discharge Details Chief Complaint: Nausea/Vomit/Diar Clinical Impression: Kidney stone, Light-headed, Nausea & vomiting, Abdominal pain Primary Care Provider: Rayray Rojas ED Provider: Jarrett Briggs Home Meds and New Rx's Prescriptions: New tamsulosin [Flomax] 0.4 mg capsule 0.4 mg PO DAILY Qty: 14 0RF Rx Instructions: Take 1 tablet daily for 14 days or until you passed the kidney stone ondansetron 4 mg tablet,disintegrating 4 mg PO Q8H PRN (Reason: nausea and vomiting) Qty: 30 0RF oxycodone 5 mg tablet 5 mg PO TID PRN (Reason: pain) Qty: 10 0RF Continued loratadine [Claritin] 10 mg tablet 10 mg PO DAILY famotidine 40 mg tablet 40 mg PO DAILY Qty: 60 11RF albuterol sulfate [ProAir HFA] 90 mcg/actuation HFA aerosol inhaler 1 - 2 puff Inhalation Q4H PRN Qty: 3 6RF gabapentin 300 mg capsule See Rx Instructions .ROUTE .COMPLEX Qty: 120 3RF Dose Instruction: TAKE 2 CAPSULES BY MOUTH THREE TIMES A DAY Rx Instructions: TAKE 2 CAPSULES BY MOUTH THREE TIMES A DAY Discharge Instructions Additional Instructions: You have a 3 mm kidney stone that will likely pass on its own You should be contacted with an appointment with urology You can take 1000 mg of Tylenol and 600 mg of ibuprofen every 6 hours as needed. If you have uncontrolled pain despite this you can take 1 oxycodone. Do not drink alcohol or operate heavy machinery if you take this If you feel more ill, have persistent vomiting, uncontrolled pain or high fevers return to the emergency department HPI General Mode of arrival: EMS . Date/Time Provider Initiated Documentation: 12/11/23 13:00 . Limitations to Documentation: no limitations . Information obtained by: patient . History of Present Illness 63 year old M presents to the emergency department with the chief complaint of abdominal pain/cramping, described as moderate, Quality is described as constant, and is localized to the abdomen. Patient reports no radiation. Patient started experiencing this hour(s) (3) and it has been constant. No relieving factors improve symptom(s), No exacerbating factors reported . Patient notes nausea/vomiting; denies chest pain, fever/chills and shortness of breath. Patient did receive the following treatments prior to arrival, none Related Data Home Medications Medication Instructions Recorded Confirmed albuterol sulfate 90 mcg/actuation 1 - 2 puff inhalation Q4H PRN ##3 09/14/19 12/11/23 aerosol inhaler (ProAir HFA) loratadine 10 mg tablet (Claritin) 10 mg PO DAILY 01/31/23 12/11/23 famotidine 40 mg tablet 40 mg PO DAILY #60 tabs 05/05/23 12/11/23 gabapentin 300 mg capsule See Rx Instructions .Route 09/01/23 12/11/23 .COMPLEX #120 caps ondansetron 4 mg disintegrating 4 mg PO Q8H PRN nausea and 12/11/23 tablet vomiting #30 tabs oxycodone 5 mg tablet 5 mg PO TID PRN pain #10 tabs 12/11/23 tamsulosin 0.4 mg capsule (Flomax) 0.4 mg PO DAILY #14 caps 12/11/23 Previous Rx's Medication Instructions Recorded albuterol sulfate 90 mcg/actuation 1 - 2 puff inhalation Q4H PRN ##3 09/14/19 aerosol inhaler (ProAir HFA) famotidine 40 mg tablet 40 mg PO DAILY #60 tabs 05/05/23 gabapentin 300 mg capsule See Rx Instructions .Route 09/01/23 .COMPLEX #120 caps ondansetron 4 mg disintegrating 4 mg PO Q8H PRN nausea and 12/11/23 tablet vomiting #30 tabs oxycodone 5 mg tablet 5 mg PO TID PRN pain #10 tabs 12/11/23 tamsulosin 0.4 mg capsule (Flomax) 0.4 mg PO DAILY #14 caps 12/11/23 Allergies Allergy/AdvReac Type Severity Reaction Status Date / Time No Known Allergies Allergy Verified 09/09/23 08:27 General Stated Complaint: Nausea/Vomit/Diar HAYLEY: 3 Review of Systems All systems reviewed & are unremarkable except as noted in HPI and below Constitutional Constitutional: Denies chills, Denies fever(s) and Denies weakness Cardiovascular Cardiovascular: Denies chest pain and Denies dyspnea Respiratory Respiratory: Denies cough and Denies dyspnea Gastrointestinal Gastrointestinal: Reports abdominal pain, Reports nausea and Reports vomiting Musculoskeletal Musculoskeletal: Denies joint swelling Neurologic Neurologic: Denies weakness Exam Const General: no acute distress Orientation: alert [facility] Head: normal to inspection Ears: external ears normal General nose exam: external nose normal Mouth: moist mucous membranes Eyes General: appearance normal, both eyes and all related structures Neck Neck: normal visual inspection Resp Effort & Inspection: normal respiratory effort and able to speak in complete sentences Cardio Rate: regular rate GI Palpation: soft and tender Skin General skin exam: no rashes or lesions noted Neuro General: patient alert and patient oriented x3 Extrem General: normal to inspection Psych Mental Status: mental status grossly normal Course Vital Signs Vital signs: Vital Signs Temperature 36.6 C 12/11/23 12:51 Pulse 57 L 12/11/23 12:51 Respiratory Rate 22 12/11/23 12:51 Blood Pressure 170/77 H 12/11/23 12:51 Pulse Oximetry 98 12/11/23 12:51 Temperature 36.6 C 12/11/23 12:51 Temperature Source Temporal Artery Scan 12/11/23 12:51 Pulse 57 L 12/11/23 12:51 Respiratory Rate 22 12/11/23 12:51 Blood Pressure 170/77 H 12/11/23 12:51 Blood Pressure Position Sitting 12/11/23 12:51 Pulse Oximetry 98 12/11/23 12:51 Oxygen Delivery Method Room Air 12/11/23 12:51 Oxygen Flow Rate 0 12/11/23 12:51 Lab/Test Results Lab/Test Results: Laboratory Tests Range/Units 12/11/23 12/11/23 12:30 13:05 WBC (4.4-10.8) 10^3/uL 12.32 H RBC (4.36-5.78) 10^6/uL 5.19 Hgb (13.5-17.5) g/dL 15.6 Hct (40.0-50.0) % 46.1 MCV (80-95) fL 89 MCH (27.0-33.0) pg 30.1 MCHC (32.0-36.0) % 33.8 RDW (11.8-14.1) % 12.7 Plt Count (130-400) 10^3/uL 324 MPV (8.0-11.0) fL 11.7 H Immature Gran % % 0.5 Neutrophils % % 88.8 Lymphocytes % % 7.0 Monocytes % % 3.3 Eosinophils % % 0.1 Basophils % % 0.3 Nucleated RBC % (0.0-0.3) % 0.0 Absolute Neutrophils (1.2-6.7) 10^3/uL 10.94 H Absolute Lymphocytes (1.2-3.4) 10^3/uL 0.86 L Absolute Monocytes (0.1-0.8) 10^3/uL 0.41 Absolute Eosinophils (0.0-0.7) 10^3/uL 0.01 Absolute Basophils (0.0-0.2) 10^3/uL 0.04 VBG pH (7.31-7.41) 7.50 H VBG pCO2 (41-51) mmHg 22 L VBG pO2 mmHg 80 VBG HCO3 (23-28) mmol/L 17 L VBG Total CO2 (24-29) mmol/L 15 L VBG O2 Saturation % 97 VBG Base Excess (-2-3) mmol/L -6 L VBG Lactate (0.6-1.4) mmol/L 2.5 H* Medical Decision Making 63-year-old male who states he has a history of lung cancer in remission, hypertension, hyperlipidemia comes in with abdominal cramping and nausea vomiting. 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 Says he started to feel some abdominal cramping and nausea so he thought he was has having symptoms of heat illness so he went inside his car with the air conditioner but despite this still continue to feel worse so EMS was called. He denies any fevers, chills, chest pain, difficulty breathing. He had a normal temp with EMS. He is alert and oriented x 4 on arrival intermittently dry heaving despite having Zofran with EMS. He has lower right and lower left abdominal tenderness on exam. Unclear etiology for his abdominal pain and nausea vomiting, could be symptoms of heat related illness but will also check a CBC, CMP, lipase, troponin and obtain CT abdomen pelvis to evaluate for entities such as SBO, appendicitis, diverticulitis. Patient feels significantly better, tolerating p.o. and now has no abdominal tenderness. His CT shows a left 3 mm UVJ kidney stone. UA unremarkable. Discussed results with him and advised this will likely pass on its own. He is stable for discharge will start him on Flomax, given as needed Zofran and oxycodone prescriptions as well and referral to urology. Return precautions given Differential Diagnosis Differential Diagnosis: Dehydration, illness, appendicitis, diverticulitis Imaging Data Radiologic Study: Attestation: I personally reviewed and interpreted this imaging study as follows: Imaging: CT Scan Radiologist's impression: 3 mm left UVJ stone Lab Data Lab results reviewed: Yes I reviewed the patient's lab results. ECG Data Attestation: I personally reviewed and interpreted this ECG (s) as follows: Prior ECG tracings: available for review Interpretation: Sinus bradycardia, rate of 56, no STEMI Quality:SDOH Health Related Social Needs: No Data to Display PFSH All Active Problems Abdominal pain (Acute) Nausea & vomiting (Acute) Light-headed (Acute) Kidney stone (Chronic) Hyperglycemia (Acute) Tubular adenoma (Acute ~04/2023) Bronchiectasis (Acute) Asthma (Chronic) History of lung cancer (Acute) Cough (Acute) Acne rosacea (Acute) Hearing loss (Acute) diminished hearing History of bronchoscopy (Acute) History of umbilical hernia repair (Acute 07/25/15) Hyperlipidemia (Acute) Hypertension (Acute) 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 Unknown, if any, significance Sciatica (Acute) recurrent left sided sciatica Status post rotator cuff repair (Acute) Medical History (Updated 12/11/23 @ 15:40 by Jarrett Briggs MD) Injury of muscle of chest wall Encounter for screening colonoscopy Non-Hodgkin's lymphoma Type B. Last received chemotherapy 2020 Asthma exacerbation Acute viral syndrome Acute dyspnea Muscle spasm Back pain Hypertension Pt. denies Hyperlipidemia Surgical History History of colonoscopy (~04/2023) path sent History of lobectomy of lung Upper RIGHTlobe Rotator Cuff Repair LEFT X 2 Repair of umbilical hernia Bronchoscopy (09/27/14) Social History Smoking/Tobacco Use Status: Former Tobacco Use Quit Date: 06/23/10 Tobacco: How many years used: 25 Smokeless tobacco user: other (pipe and cigar) Quit status: quit date established Smoking risk assessment performed?: Yes Alcohol Intake: never Drug use: Never Substance use type: does not use Housing: house Do you feel safe at home: Yes Do you feel safe in your relationship?: Yes Additional Social history: unable to assess privately, 05/19/23-kevin
[2023-12-11] MEDS: Ketorolac 15 MG/ML VIAL IVP (13:20)
[2023-12-11 13:27] LABS: Bilirubin Negative (Negative); Blood Trace-intact (Negative); Clarity Clear (Clear); Glucose Negative (Negative); Ketones Negative (Negative); Leukocyte Esterase Negative (Negative); Nitrite Negative (Negative); Specific Gravity 1.025 (1.005-1.025); Urobilinogen 0.2 mg/dL (Up to 0.2); pH 7.5 (5-8)
[2023-12-11 13:29] LABS: ALT 32 U/L (16-63); AST 25 U/L (15-37); Albumin 3.9 g/dL (3.4-5.0); Alkaline Phosphatase 86 U/L (46-116); Anion Gap 10.6 mmol/L (3-11); BUN 24 mg/dL (7-18); CO2 23.4 mmol/L (21.0-32.0); CREATININE 1.3 mg/dL (0.70-1.30); Calcium 9.5 mg/dL (8.5-10.1); Chloride 108 mmol/L (98-107); Creatine Kinase 74 U/L (39-308); Estimated GFR 60.96 (mL/min/1.73m2); Glucose 151 mg/dL (74-106); Lipase 54 U/L (16-77); Magnesium 1.7 mg/dL (1.8-2.4); Potassium 3.8 mmol/L (3.5-5.1); Sodium 142 mmol/L (136-145); TSH (W/Ref FT4) 1.31 uIU/mL (0.36-3.74); Total Protein 7.9 g/dL (6.4-8.2); Troponin I < 50 ng/L (< or =60)
[2023-12-11 13:34] LABS: Bacteria Negative HPF (Negative); C & S Indicated? No; Casts Negative LPF (Negative); Crystals Negative HPF (Negative); Epithelial Cells Rare HPF (Negative); Mucus Negative (Negative); RBC 0-2 HPF (0-2); WBC 0-2 HPF (0-5)
[2023-12-11] MEDS: Omnipaque 350 MG/ML 100 ML BTL IJ (13:39)
[2023-12-11] MEDS: Normal Saline - Diluent 50 ML VIAL IV (13:48)
[2023-12-11] MEDS: Normal Saline 1,000 ML 1000 ML IV (14:00)
[2023-12-11 14:40] VITALS: BP 120/78; PULSE 81; RESP 16
[2023-12-11 15:20] VITALS: BP 126/62; PULSE 62; RESP 16; TEMP 36.6; O2SAT 95
--- NOTE | 2023-12-11 15:33 | NUR.NOTE ---
Referral faxed to Urology for follow up to a Kidney Stone ROXANA
[2023-12-11 15:57] VITALS: BP 138/70; PULSE 60; RESP 16; TEMP 36.6; O2SAT 96
--- NOTE | 2023-12-13 11:31 | NUR.NOTE ---
Accessed chart to determine number of EKG order to EKG's in [facility]. Duplicate EKG order cancelled. Nursing Note:
== END 2023-12-11 15:57 | disposition home or self-care (01) ==
PROVIDERS: Emergency Provider Emergency Medicine; PCP Nurse Practitioner Family
DX: N13.2 Hydronephrosis with renal and ureteral calculous obstruction (principal); R94.31 Abnormal electrocardiogram [ECG] [EKG]; R42 Dizziness and giddiness; R11.2 Nausea with vomiting, unspecified; C34.90 Malignant neoplasm of unspecified part of unspecified bronchus or lung; Z90.2 Acquired absence of lung [part of]; I10 Essential (primary) hypertension; E78.5 Hyperlipidemia, unspecified; Z87.891 Personal history of nicotine dependence
CPT/HCPCS: 80053; 82550; 82805; 82962; 83690; 93005; 96361; 96374; 99285; 74177; 81003; 81015; 83605; 83735; 84443; 84484; 85025; 93010; 99284; J0780; J1885; J3490

== ENCOUNTER 2024-06-21 13:32 | Emergency (ER) | payer BC, SELFPAY ==
[2024-06-21] VITALS (35 sets, daily range): BP systolic 139–192; BP diastolic 55–157; PULSE 53–78; RESP 15–29; O2SAT 85–100
--- NOTE | 2024-06-21 13:30 | RT.EKG_ITS ---
APPROVED REPORT Exam: Resting ECG Reason for Exam: epigastric pain Patient Location: E HR:57 bpm ECG Measurements Heart Rate 57 AXIS TX 162 P 48 QRSd 101 QRS 8 QT 475 T 18 QTc 463 Conclusion Sinus bradycardia 57 normal axis no stemi
--- NOTE | 2024-06-21 14:00 | DI.US_ITS ---
Exam(s) US ABDOMEN LIMITED EXAM: US ABDOMEN LIMITED CLINICAL HISTORY: RUQ eval GB TECHNIQUE: Ultrasound abdomen performed using standard protocol. COMPARISON: CT CT ABDOMEN PELVIS W from 12/11/2023 FINDINGS: Examination is somewhat limited by incessant vomiting by the patient according to the skin care technician nologist. There is no ascites evident. LIVER: There are no hepatic lesions evident nor dilatation of intrahepatic ducts. GALLBLADDER/BILIARY: There appears to be a small shadowing calculus at the gallbladder neck level. G allbladder does not appear edematous and there is no pericholecystic fluid. Wall thickness is upper normal. The common hepatic duct isnot dilated, measuring 6mm at the level of mariajose hepatis. PANCREAS: There is no evidence of pancreatic mass nor dilatation of the pancreatic duct. RIGHT KIDNEY:No evidence of solid mass, calculus, nor hydronephrosis. No cortical cysts evident. IMPRESSION: 1. Small gallstone. Gallbladder wall thickness is upper normal. There is no pericholecystic fluid and the CBD is not dilated. 2. No other significant ultrasound findings in the right upper quadrant. 3. Please note that CT scan of November 2023 revealed an obstructing calculus in the lower left ureter. DATA REPOSITORY:
[2024-06-21] MEDS: MORPHine 10 MG/ML VIAL 6 MG IVP (14:48)
[2024-06-21] MEDS: Ondansetron 4 MG/2 ML VIAL IVP (14:48)
[2024-06-21 15:16] LABS: Abs Immature Grans 0.06 10^3/uL (0.0-0.06); Absolute Basophil Count 0.03 10^3/uL (0.0-0.2); Absolute Monocyte Count 0.32 10^3/uL (0.1-0.8); Basophils % 0.2 %; HCT 43.5 % (40.0-50.0); HGB 15.4 g/dL (13.5-17.5); Immature Grans % 0.5 %; Lymphocytes % 3.2 %; MCH 30.2 pg (27.0-33.0); MCHC 35.4 % (32.0-36.0); MCV 85 fL (80-95); MPV 11.1 fL (8.0-11.0); Monocytes % 2.4 %; Neutrophils % 93.7 %; Platelet Count 295 10^3/uL (130-400); RDW 12.3 % (11.8-14.1); RDW-SD 38.5 fL; WBC 13.31 10^3/uL (4.4-10.8)
[2024-06-21 15:17] LABS: Absolute Lymphocyte Count 0.43 10^3/uL (1.2-3.4); Absolute Neutrophil Count 12.47 10^3/uL (1.2-6.7)
[2024-06-21 15:23] LABS: INR 1.1 (0.9-1.1); Prothrombin Time 10.8 sec (9.1-11.1)
[2024-06-21 15:33] LABS: ALT 26 U/L (16-63); AST 23 U/L (15-37); Albumin 3.7 g/dL (3.4-5.0); Alkaline Phosphatase 85 U/L (46-116); Anion Gap 12.3 mmol/L (3-11); BUN 17 mg/dL (7-18); Bilirubin, Total 0.62 mg/dL (0.2-1.0); CO2 23.7 mmol/L (21.0-32.0); Calcium 9.6 mg/dL (8.5-10.1); Chloride 107 mmol/L (98-107); Estimated GFR 83.01 (mL/min/1.73m2); Glucose 124 mg/dL (74-106); Lipase 48 U/L (<78); Magnesium 1.7 mg/dL (1.8-2.4); Potassium 3.7 mmol/L (3.5-5.1); Sodium 143 mmol/L (136-145); Total Protein 7.6 g/dL (6.4-8.2)
[2024-06-21] MEDS: Droperidol 5 MG/2 ML VIAL IVP (15:35)
--- NOTE | 2024-06-21 16:15 | RT.EKG_ITS ---
APPROVED REPORT Exam: Resting ECG Reason for Exam: T wave changes noted on tele Patient Location: E HR:55 bpm ECG Measurements Heart Rate 55 AXIS IN 157 P 39 QRSd 103 QRS -6 QT 470 T -14 QTc 451 Conclusion Sinus bradycardia. 55 normal axis no change from prior
--- NOTE | 2024-06-21 16:36 | ED.GENADUL_ITS ---
Discharge Plan Disposition Patient Disposition: Home Discharge Details Clinical Impression: Cholelithiasis, Abdominal pain, Vomiting Primary Care Provider: Rayray Rojas ED Provider: Vandana Carrera Home Meds and New Rx's Prescriptions: New ondansetron 4 mg tablet,disintegrating 4 mg PO Q6H PRN PRN (Reason: nausea and vomiting) Qty: 20 0RF No Action famotidine 40 mg tablet 40 mg PO DAILY Qty: 60 11RF gabapentin 300 mg capsule See Rx Instructions .ROUTE .COMPLEX Qty: 120 3RF Dose Instruction: TAKE 2 CAPSULES BY MOUTH THREE TIMES A DAY Rx Instructions: TAKE 2 CAPSULES BY MOUTH THREE TIMES A DAY albuterol sulfate [ProAir HFA] 90 mcg/actuation HFA aerosol inhaler 1 - 2 puff Inhalation Q4H PRN Qty: 3 6RF loratadine [Claritin] 10 mg tablet 10 mg PO DAILY Discharge Instructions Instructions: Gallbladder Diet Additional Instructions: Your workup today for your abdominal pain revealed that you have a gallstone that is likely causing your symptoms At home you need to have a clear liquid very bland diet until your symptoms are completely resolved You have been sent home with nausea medication to take as needed If you have recurrence of severe persistent pain, vomiting uncontrolled by the nausea medication, any fever or chills, you should return to the emergency department Otherwise you have been referred to general surgery clinic for follow-up Discharge Data Discharge Date/Time-TO BE ENTERED AT DEPARTURE: 06/21/24 18:31 HPI General Date/Time Provider Initiated Documentation: 06/21/24 13:42 . Limitations to Documentation: no limitations . Information obtained by: patient . HPI Narrative: 64-year-old gentleman with past medical history of asthma, hypertension umbilical hernia presents for evaluation of upper abdominal pain. He reports that he was feeling fine until this morning when he had a coffee and an Egg McMuffin from [employer]. He reports shortly after that he started with vomiting. He reports persistent vomiting throughout the day. He states that he has not had any fever or chills or diarrhea. He localizes pain to the upper part of his abdomen. He has not tried any medications for relief. Symptoms are severe. Not associate with chest pain. Pain is across the top of his abdomen and in the right upper quadrant. He denies any shortness of breath. Denies any sick contacts. Related Data Home Medications ?Medication ?Instructions ?Recorded ?Confirmed famotidine 40 mg tablet 40 mg PO DAILY #60 tabs 05/05/23 06/21/24 gabapentin 300 mg capsule See Rx Instructions .Route 09/01/23 06/21/24 .COMPLEX #120 caps albuterol sulfate 90 mcg/actuation 1 - 2 puff inhalation Q4H PRN ##3 01/05/24 06/21/24 aerosol inhaler (ProAir HFA) loratadine 10 mg tablet (Claritin) 10 mg PO DAILY 06/21/24 06/21/24 ondansetron 4 mg disintegrating 4 mg PO Q6H PRN PRN nausea and 06/21/24 tablet vomiting #20 tabs Previous Rx's ?Medication ?Instructions ?Recorded famotidine 40 mg tablet 40 mg PO DAILY #60 tabs 05/05/23 gabapentin 300 mg capsule See Rx Instructions .Route 09/01/23 .COMPLEX #120 caps albuterol sulfate 90 mcg/actuation 1 - 2 puff inhalation Q4H PRN ##3 01/05/24 aerosol inhaler (ProAir HFA) ondansetron 4 mg disintegrating 4 mg PO Q6H PRN PRN nausea and 06/21/24 tablet vomiting #20 tabs Allergies Allergy/AdvReac Type Severity Reaction Status Date / Time No Known Allergies Allergy Verified 06/21/24 13:37 General Stated Complaint: Abd Prob HAYLEY: 3 Exam Narrative Exam Narrative: Review of Systems: All systems reviewed & are unremarkable except as noted in HPI and below appears very uncomfortable afebrile NCAT normal conjunctiva Bradycardia Unlabored respiratory effort clear bilaterally Nondistended abdomen soft, tenderness in the epigastric and right upper quadrant region with guarding Course Vital Signs Vital signs: Vital Signs Pulse 60 06/21/24 13:35 Respiratory Rate 24 06/21/24 13:35 Blood Pressure 176/101 H 06/21/24 13:35 Pulse Oximetry 98 06/21/24 13:35 Pulse 60 06/21/24 13:44 Respiratory Rate 24 06/21/24 13:44 Respiratory Effort Normal, Non-Labored 06/21/24 15:26 Respiratory Depth Normal 06/21/24 15:26 Blood Pressure 176/101 H 06/21/24 13:44 Blood Pressure Position Sitting 06/21/24 13:44 Pulse Oximetry 98 06/21/24 13:44 Oxygen Delivery Method Room Air 06/21/24 13:44 Oxygen Flow Rate 0 06/21/24 13:44 Pain Level 9 06/21/24 15:35 Lab/Test Results Lab/Test Results: Laboratory Tests Range/Units 06/21/24 15:05 WBC (4.4-10.8) 10^3/uL 13.31 H RBC (4.36-5.78) 10^6/uL 5.10 Hgb (13.5-17.5) g/dL 15.4 Hct (40.0-50.0) % 43.5 MCV (80-95) fL 85 MCH (27.0-33.0) pg 30.2 MCHC (32.0-36.0) % 35.4 RDW (11.8-14.1) % 12.3 Plt Count (130-400) 10^3/uL 295 MPV (8.0-11.0) fL 11.1 H Immature Gran % % 0.5 Neutrophils % % 93.7 Lymphocytes % % 3.2 Monocytes % % 2.4 Eosinophils % % 0.0 Basophils % % 0.2 Nucleated RBC % (0.0-0.3) % 0.0 Absolute Neutrophils (1.2-6.7) 10^3/uL 12.47 H Absolute Lymphocytes (1.2-3.4) 10^3/uL 0.43 L Absolute Monocytes (0.1-0.8) 10^3/uL 0.32 Absolute Eosinophils (0.0-0.7) 10^3/uL 0.00 Absolute Basophils (0.0-0.2) 10^3/uL 0.03 PT (9.1-11.1) sec 10.8 INR (0.9-1.1) 1.1 Sodium (136-145) mmol/L 143 Potassium (3.5-5.1) mmol/L 3.7 Chloride (98-107) mmol/L 107 Carbon Dioxide (21.0-32.0) mmol/L 23.7 Anion Gap (3-11) mmol/L 12.3 H BUN (7-18) mg/dL 17 Creatinine (0.70-1.30) mg/dL 1.0 Est GFR (CKD-EPI 2020) (mL/min/1.73m2) 83.01 Glucose (74-106) mg/dL 124 H Calcium (8.5-10.1) mg/dL 9.6 Magnesium (1.8-2.4) mg/dL 1.7 L Total Bilirubin (0.2-1.0) mg/dL 0.62 AST (15-37) U/L 23 ALT (16-63) U/L 26 Alkaline Phosphatase (46-116) U/L 85 Total Protein (6.4-8.2) g/dL 7.6 Albumin (3.4-5.0) g/dL 3.7 Lipase (<78) U/L 48 Medical Decision Making Emergent evaluation of abdominal pain and vomiting. Acute onset after eating and Egg McMuffin. Initial differential includes cholelithiasis, cholecystitis, pancreatitis. Patient is fairly uncomfortable. Plan for pain control antiemetics. Will get ultrasound imaging to evaluate gallbladder. Lab work reviewed. There is mild leukocytosis at 13 with a slight shift. Slight elevation in anion gap at 12.3. Otherwise no significant electrolyte derangement. Magnesium slightly low at 1.6. Lipase is not elevated. Patient had minimal relief after IV morphine and a dose of droperidol was given which did provide relief. 1700 Discussed ultrasound findings with the radiologist. There does appear to be a gallstone, but there is no edema of the gallbladder or gallbladder wall thickening and no pericholecystic fluid. No obvious findings consistent with acute cholecystitis. On reevaluation, the patient's symptoms have resolved and his abdominal exam is benign. Will give a p.o. challenge and reassess Patient tolerated p.o. challenge and again on reassessment had some mild nausea but no pain and a benign abdominal exam. At this time I do not think he needs admission for symptomatic cholelithiasis or emergent gallbladder surgery. However I did discuss with the patient that he had is at high risk for recurrence of symptoms. We discussed return precautions including severe pain persistent vomiting or fever or. An urgent follow-up referral has been placed for general surgery as well. Patient discharged with prescription for Zofran. 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 Unknown, if any, significance Sciatica (Acute) recurrent left sided sciatica Status post rotator cuff repair (Acute) Medical History Injury of muscle of chest wall Encounter for screening colonoscopy Non-Hodgkin's lymphoma Type B. Last received chemotherapy 2020 Asthma exacerbation Acute viral syndrome Acute dyspnea Muscle spasm Back pain Hypertension Pt. denies Hyperlipidemia Surgical History History of colonoscopy (~04/2023) path sent History of lobectomy of lung Upper RIGHTlobe Rotator Cuff Repair LEFT X 2 Repair of umbilical hernia Bronchoscopy (09/27/14) Family History Mother Alcohol use disorder Father Cancer Brother Alcohol use disorder Cancer Diabetes Substance use disorder Maternal Grandmother Breast cancer Maternal Grandfather Alcohol use disorder Social History Smoking/Tobacco Use Status: Former Tobacco Use tobacco type: pipe and cigars Quit Date: 06/23/02 Tobacco: How many years used: 25 Smokeless tobacco user: other (pipe and cigar) Quit status: quit date established Smoking risk assessment performed?: Yes Alcohol Intake: former Year quit: 2010 Drug use: Never Substance use type: does not use Adopted: No Caregiver/Support person: No Household members: spouse Housing: house Number of Children: 5 number of grandchildren: 1 Communication Needs: Hard of Hearing Education Level: college Details: BS History and Education Do you need help understanding health information?: Rarely Sexually active: Yes Do you think of yourself as: straight/heterosexual Current gender identity: male What is your relationship status?: How often do you attend amish or catholic services?: 4 or more times per year Do you belong to any clubs or organized social groups?: no Panel score (0-1 are the most socially isolated patients): 2 What type of physical activity do you participate in: walking and other Details: Rowing Emely/Protestant: Yazdanism Special emely needs: No Seatbelt use: sometimes Helmet use: No Drive intox or ride w/intox inventory associate and driver: No Firearms in home: Yes Firearms unloaded and locked: Yes Do you feel safe at home: Yes Do you feel safe in your relationship?: Yes Victim of physical abuse: No Victim of emotional abuse: No Victim of sexual abuse: No Would you like helpful sources: No Additional Social history: unable to assess privately, 05/19/23-kevin
[2024-06-21] MEDS: Ondansetron O.D.T. 4 MG TABEF, 3 TABS/BTL PO (18:11)
[2024-06-21] MEDS: Ondansetron O.D.T. 4 MG TABEF PO (18:18)
--- NOTE | 2024-06-27 07:44 | NUR.NOTE ---
Patient's Sherry called [phone] stating that the patient has not felt well since he was discharged. He is now running a fever. I spoke with Diane De, crm marketing executive and she said to have the patient return to ED. I told his this. Nursing Note:
== END 2024-06-21 18:31 | disposition home or self-care (01) ==
PROVIDERS: Emergency Provider Emergency Medicine; PCP Nurse Practitioner Family
DX: K80.20 Calculus of gallbladder without cholecystitis without obstruction (principal); R11.10 Vomiting, unspecified; R10.13 Epigastric pain
CPT/HCPCS: 36415; 80053; 83690; 93005; 96374; 96375; 99284; 76705; 83735; 85025; 85610; 93010; J1790; J2270; J2405

== ENCOUNTER 2024-06-27 08:20 | Emergency (ER) | payer BC, SELFPAY ==
[2024-06-27] VITALS (50 sets, daily range): BP systolic 69–137; BP diastolic 40–112; PULSE 68–118; RESP 18–40; TEMP 36.6; O2SAT 90–94
--- NOTE | 2024-06-27 08:30 | DI.CT_ITS ---
Exam(s) CT ABDOMEN PELVIS W EXAM: CT ABDOMEN PELVIS W CLINICAL HISTORY: RUQ tenderness, vomiting, septic. TECHNIQUE: Imaging Protocol: Axial computed tomography images with coronal and sagittal reformatted images were created and reviewed CONTRAST MATERIAL: Intravenous: Omnipaque-350 100cc Oral: None COMPARISON: CT CT ABDOMEN PELVIS W from 12/11/2023 FINDINGS: Imaging on this study is less than optimal. The entire left lung base is not included in the field o f view. The entire liver is also not included in the field of view VISUALIZED LUNG BASES: There is some pleural based infiltrate in the left lower lobe posterior basal segment which was not evident on prior CT scan of 12/11/2023 is difficult to evaluate because it is n ot completely included in the field of view. There is no obvious pleural effusion on either side. T here are postsurgical or posttraumatic changes in posterior lateral right ribs.. ABDOMEN: There is no ascites. LIVER: Evaluation of the liver is limited by it not being completely included in the field of view. This is related to technical abnormality during this study. There are no obvious lesions in the live r realizing the limitations of liver evaluation on this study. There are no dilated intrahepatic minnie ts. GALLBLADDER/BILIARY: The gallbladder is is abnormal. There is some pericholecystic streaking. No ob vious calcified gallstones. Nevertheless concerning for acute cholecystitis.. The CBD is not dilate d. PANCREAS: There is a duodenal diverticulum covering part of the pancreatic head. No evidence of obvi ous pancreatic mass nor dilatation of the pancreatic duct. No evidence of pancreatitis. SPLEEN: Spleen is not enlarged. No obvious intrasplenic lesions. Splenic and portal veins are paten t. ADRENALS: There are no significant adrenal masses. KIDNEYS:No cysts evident. No solid renal masses. No calculi nor hydronephrosis.. ABDOMINAL AORTA: Abdominal aorta is not enlarged. LYMPH NODES:There is no retroperitoneal nor paraaortic adenopathy. ABDOMINAL WALL: No evidence of significant anterior abdominal wall nor inguinal hernia. GI: There is no evidence of bowel obstruction, free air, nor abscess. PELVIS: GI: No evidence of appendicitis.No evidence of sigmoid diverticulitis. LYMPH NODES: There is no intrapelvic nor inguinal adenopathy. REPRODUCTIVE: Mild prostatic enlargement. Seminal vesicles unremarkable. URINARY BLADDER: Uniform bladder wall thickening which is most probably related to under distension. The pelvic ureters are not dilated. The previously present calculus in the lower left ureter is no longer seen. OSSEOUS: No fractures and no significant osseous lesions. IMPRESSION: 1. There is some gallbladder wall thickening and pericholecystic streaking consistent with probable c holecystitis. No obvious calcified gallstones noted. Recommend right upper quadrant ultrasound. CB D is not dilated. There is no dilatation of intrahepatic ducts. 2. The previously present lower left ureter calculus seen on CT scan of 12/11/2023 is no longer evide nt. There presently no calculi in the kidneys and no hydronephrosis. 3. Less than optimal study. The entire liver is not included in the field of view of this study. 4. RADIATION DOSE DELIVERED: 702.14mGy.cm Total DLP DATA REPOSITORY: All CT scans at this facility are submitted to the National Radiology Data Registry (NRDR) Dose Index Registry (DIR) with the [employer] (ACR). RADIATION OPTIMIZATION: All CT scans at this facility use at least one of these dose optimization te chniques: automated exposure control; mA and/or kV adjustment per patient size (includes targeted exa ms where dose is matched to clinical indication); or iterative reconstruction.
--- NOTE | 2024-06-27 08:32 | W.ED.GENAD ---
Discharge Plan Disposition Patient Disposition: Transfer-Acute Inpatient Care Specific Acute Inpt Facility: [facility] Condition: Serious Discharge Details Clinical Impression: Septic shock, Ascending cholangitis Primary Care Provider: Rayray Rojas ED Provider: Garcia Charlton Home Meds and New Rx's Prescriptions: No Action famotidine 40 mg tablet 40 mg PO DAILY Qty: 60 11RF gabapentin 300 mg capsule See Rx Instructions .ROUTE .COMPLEX Qty: 120 3RF Dose Instruction: TAKE 2 CAPSULES BY MOUTH THREE TIMES A DAY Rx Instructions: TAKE 2 CAPSULES BY MOUTH THREE TIMES A DAY albuterol sulfate [ProAir HFA] 90 mcg/actuation HFA aerosol inhaler 1 - 2 puff Inhalation Q4H PRN Qty: 3 6RF loratadine [Claritin] 10 mg tablet 10 mg PO DAILY ondansetron 4 mg tablet,disintegrating 4 mg PO Q6H PRN PRN (Reason: nausea and vomiting) Qty: 20 0RF Discharge Data Discharge Date/Time-TO BE ENTERED AT DEPARTURE: 06/27/24 12:32 HPI General Date/Time Provider Initiated Documentation: 06/27/24 08:32. HPI Narrative: 64 year-old male presents to ED today by POV/ambulating with a chief complaint of fatigue, profound, increasing vomiting, seen earlier this week and diagnosed with cholelithiasis with upcoming surgical consult on Friday. Patient has not had a fever of 101.9 with diffuse abdominal pain, endorses cough as well. Quality described as profoundly fatigued, some nausea but Zofran appears to be working, no radiation to overt chest pain, hemoptysis, complete constipation, endorses dark urine and flank pain. Severity is described as 10/10 for illness. Palliating factors include took Tylenol at 4 AM. Provoking factors include nothing specific. Events leading up to the incident/Associated Symptoms: Patient has history of non-Hodgkin's lymphoma, history of lobectomy of lung. Patient not anticoagulated. Related Data Home Medications ?Medication ?Instructions ?Recorded ?Confirmed famotidine 40 mg tablet 40 mg PO DAILY #60 tabs 05/05/23 06/27/24 gabapentin 300 mg capsule See Rx Instructions .Route 09/01/23 06/27/24 .COMPLEX #120 caps albuterol sulfate 90 mcg/actuation 1 - 2 puff inhalation Q4H PRN ##3 01/05/24 06/27/24 aerosol inhaler (ProAir HFA) loratadine 10 mg tablet (Claritin) 10 mg PO DAILY 06/21/24 06/27/24 ondansetron 4 mg disintegrating 4 mg PO Q6H PRN PRN nausea and 06/21/24 06/27/24 tablet vomiting #20 tabs Previous Rx's ?Medication ?Instructions ?Recorded famotidine 40 mg tablet 40 mg PO DAILY #60 tabs 05/05/23 gabapentin 300 mg capsule See Rx Instructions .Route 09/01/23 .COMPLEX #120 caps albuterol sulfate 90 mcg/actuation 1 - 2 puff inhalation Q4H PRN ##3 01/05/24 aerosol inhaler (ProAir HFA) ondansetron 4 mg disintegrating 4 mg PO Q6H PRN PRN nausea and 06/21/24 tablet vomiting #20 tabs Allergies Allergy/AdvReac Type Severity Reaction Status Date / Time No Known Allergies Allergy Verified 06/27/24 08:28 General Stated Complaint: Abd Prob HAYLEY: 3 Review of Systems All systems reviewed & are unremarkable except as noted in HPI and below Exam Narrative Exam Narrative: GENERAL APPEARANCE: Well-nourished, toxic, awake and alert, atraumatic, moderate acute distress. SKIN: Warm, pale, diaphoretic, intact, without rashes/lesions/ulcerations. HEAD: Normocephalic, atraumatic, normal hair distribution for gender/age. EYES: Normal conjunctiva, no exudates on lids/lashes. ENT: Nares patent, no circumoral cyanosis, no facial swelling NECK: Supple, trachea midline, painless cervical ROM. LUNGS/CHEST: Lungs CTA bilaterally- no rhonchi/rales/wheezes diffusely, non-labored respirations, normal A/P diameter, symmetrical expansion, no chest wall deformity HEART (CV/PV): Regular rate and rhythm- tachycardic to 110 without murmur, no peripheral edema, no JVD, hypotensive 75/45 MAP of 55 ABDOMEN: Soft, non-distended, no guarding, RUQ tenderness, LLQ tenderness, no pulsatile masses to palpation. MSK: Normal ROM, no swelling/deformity to bilateral UEs or LEs, moving all extremities without weakness, no cyanosis, spine midline without tenderness, normal curvature. NEURO: Mental Status AAOx4 - alert to person, place, time, events No facial droop, no forehead involvement. Motor: No focal weakness - strength 4/5 in bilateral UEs and LEs, proximal and distal, symmetric. Sensory: sensation intact to light touch globally. Gait NT PSYCH: euthymic, cooperative, pleasant, appropriate speech Course Vital Signs Vital signs: Vital Signs Temperature 36.6 C 06/27/24 08:24 Pulse 97 H 06/27/24 08:24 Respiratory Rate 30 H 06/27/24 08:24 Blood Pressure 137/112 H 06/27/24 08:24 Pulse Oximetry 92 06/27/24 08:24 Temperature 36.6 C 06/27/24 08:24 Temperature Source Oral 06/27/24 08:24 Pulse 97 H 06/27/24 08:24 Respiratory Rate 30 H 06/27/24 08:24 Blood Pressure 137/112 H 06/27/24 08:24 Blood Pressure Position Sitting 06/27/24 08:24 Pulse Oximetry 92 06/27/24 08:24 Oxygen Delivery Method Room Air 06/27/24 08:24 Oxygen Flow Rate 0 06/27/24 08:24 Pain Level 0 06/27/24 08:24 Medical Decision Making This dictation utilizes [id number] dictation software and may contain unedited grammatical errors. 64 year-old male presents to ED today by POV/ambulating with a chief complaint of fatigue, profound, increasing vomiting, seen earlier this week and diagnosed with cholelithiasis with upcoming surgical consult on Friday. Patient has not had a fever of 101.9 with diffuse abdominal pain, endorses cough as well. Quality described as profoundly fatigued, some nausea but Zofran appears to be working, no radiation to overt chest pain, hemoptysis, complete constipation, endorses dark urine and flank pain. Severity is described as 10/10 for illness. Palliating factors include took Tylenol at 4 AM. Provoking factors include nothing specific. Events leading up to the incident/Associated Symptoms: Patient has history of non-Hodgkin's lymphoma, history of lobectomy of lung. Family and social history: Lives at home with , FULL CODE status. Pertinent exam findings / vital signs include right upper quadrant tenderness in the abdomen, left lower quadrant tenderness, profoundly toxic appearing, lethargic, lungs CTA, likely septic shock. Differential / pathologies of concern include ascending biliary cholangitis, infected renal stone, choledocholithiasis, pneumonia, septic shock. Diagnostic studies of: -Septic work-up, likely source abdominal. -Initial lactate 6.4 -SCr 5.4, patient already at CT scan w contrast- life threatening infection takes precedence over non-contrast study -WBCs 36 -CRP greater than 25 -Magnesium 1.6 -Lipase within normal limit -Total bilirubin 2.8 with obstructive pattern with conjugated bilirubin 2.2 with mild elevation of LFTs -Procalcitonin greater than 190 -CT shows acute cholecystitis, spoke with [facility]- no evidence of CBD dilatation at this time to suspect choledocholithiasis, [facility] Dr. Gonzalez does suspect CBD dilatation Interventions of: -Initiated 2 L IVF bolus based on 30 cc/kg IBW, given empiric Zosyn for intra-abdominal infection as well as azithromycin for atypical pneumonia coverage and vancomycin for MRSA coverage, given 1 g IV Tylenol, 15 mg IV ketorolac, bilateral peripheral IVs established as well as central line placed by EM attending Dr. Valero. ED Course/Assessment/Plan: 64-year-old male presents after being seen 06/21 for cholelithiasis with a few days of fever, nausea, getting weaker and more sick endorses cough as well. It is likely that he has ascending biliary cholangitis with septic shock based on his workup, he was seen by myself and EM attending Dr. Michael Valero who placed a right IJ central line, patient has 2 peripheral lines of access, had been given 30 cc/KG sepsis bolus of fluids and started on maintenance fluids, patient was given empiric Zosyn, vancomycin, azithromycin, given 1 g IV Tylenol and 15 mg IV Toradol, patient is not noted acute renal failure and needs transfer for possible dialysis. Dr. Alicea of general surgery practice believes patient needs transfer, I did contact [facility] critical care Dr. Gonzalez who accepted the patient at [phone], at this time the patient is still hypotensive maxed out on norepinephrine and vasopressin was started at 0.4/min. Patient's blood pressure is improving with this therapy is currently 107/73 at time of transfer, his respiratory status has not declined for the 3-1/2-hour ER visit here he is satting 93% on room air his heart rate is normalized to 75 and I do think that he is cognizant enough that he does not need any emergent airway prior to being transferred. Disposition of Septic Shock, Ascending Cholangiitis Patient verbalized understanding of the plan and return to ED criteria and engaged in shared decision making. Medical Records Medical records reviewed: Yes I reviewed the patient's medical records. Imaging Data Radiologic Study: Attestation: I personally reviewed and interpreted this imaging study as follows: Imaging: CT Scan Radiologist's impression: Addendum created by Rissa Woodard MD on 06/27/2024 9:51:12 AM EST: Findings were discussed with GARCIA Aquino on 06/27/2024 9:50 AM EST Initial report created on 06/27/2024 9:49:38 AM EST: PROCEDURE INFORMATION: Exam: CT Abdomen And Pelvis With Contrast Exam date and time: 06/27/2024 9:21 AM Age: 64 years old Clinical indication: Pain; Other: Ruq tenderness, vomiting, septic; Prior surgery; Surgery date: 6+ months; Surgery type: Lumpectomy right lung. Hernia repair TECHNIQUE: Imaging protocol: Computed tomography of the abdomen and pelvis with contrast. Contrast material: OMNIAPQUE 350; Contrast volume: 100 ml; Contrast route: INTRAVENOUS (IV); COMPARISON: CT ABDOMEN PELVIS W 12/11/2023 1:45 PM FINDINGS: Liver: Evaluation limited by incomplete imaging of the liver and gallbladder. Fatty infiltration of the liver. Gallbladder and biliary ducts: Gallbladder wall thickening with pericholecystic inflammatory changes and fluid, compatible with acute cholecystitis. Pancreas: Normal. No ductal dilation. Spleen: Normal. No splenomegaly. Adrenal glands: Normal. No mass. Kidneys and ureters: Normal. No hydronephrosis. Stomach and bowel: Small duodenal diverticulum. Appendix: No evidence of appendicitis. Intraperitoneal space: Unremarkable. No free air. No significant fluid collection. Vasculature: Unremarkable. No abdominal aortic aneurysm. Lymph nodes: Unremarkable. No enlarged lymph nodes. Urinary bladder: Unremarkable as visualized. Reproductive: Unremarkable as visualized. Bones/joints: Unremarkable. No acute fracture. Soft tissues: Unremarkable. IMPRESSION: 1. Gallbladder wall thickening with pericholecystic inflammatory changes and fluid, compatible with acute cholecystitis. 2. Evaluation limited by incomplete imaging of the liver and gallbladder. Dictated and Authenticated by: Rissa Woodard MD. Lab Data Lab results reviewed: Yes I reviewed the patient's lab results. Labs: 06/27/24 09:20 Blood Blood Culture - Pending 06/27/24 08:02 Blood Blood Culture - Pending Laboratory Tests Range/Units 06/27/24 06/27/24 06/27/24 08:02 09:43 11:16 WBC (4.4-10.8) 10^3/uL 36.02 H* RBC (4.36-5.78) 10^6/uL 4.85 Hgb (13.5-17.5) g/dL 14.5 Hct (40.0-50.0) % 42.0 MCV (80-95) fL 87 MCH (27.0-33.0) pg 29.9 MCHC (32.0-36.0) % 34.5 RDW (11.8-14.1) % 13.3 Plt Count (130-400) 10^3/uL 83 L MPV (8.0-11.0) fL Immature Gran % % 0.0 Neutrophils % % 84.0 Band Neutrophils % % 14 Lymphocytes % % 1.0 Monocytes % % 1.0 Eosinophils % % 0.0 Basophils % % 0.0 Nucleated RBC % (0.0-0.3) % 0.1 Absolute Neutrophils (1.2-6.7) 10^3/uL 35.30 H Absolute Lymphocytes (1.2-3.4) 10^3/uL 0.36 L Absolute Monocytes (0.1-0.8) 10^3/uL 0.36 Absolute Eosinophils (0.0-0.7) 10^3/uL 0.00 Absolute Basophils (0.0-0.2) 10^3/uL 0.00 RBC Morphology Normal VBG pH (7.31-7.41) 7.40 VBG pCO2 (41-51) mmHg 32 L VBG pO2 mmHg 41 VBG HCO3 (23-28) mmol/L 20 L VBG Total CO2 (24-29) mmol/L 18 L VBG O2 Saturation % 78 VBG Base Excess (-2-3) mmol/L -5 L VBG Lactate (0.6-1.4) mmol/L 6.3 H* Sodium (136-145) mmol/L 134 L Potassium (3.5-5.1) mmol/L 3.9 Chloride (98-107) mmol/L 97 L Carbon Dioxide (21.0-32.0) mmol/L 22.4 Anion Gap (3-11) mmol/L 14.6 H BUN (7-18) mg/dL 78 H Creatinine (0.70-1.30) mg/dL 5.4 H* Est GFR (CKD-EPI 2020) (mL/min/1.73m2) 10.97 Glucose (74-106) mg/dL 131 H Calcium (8.5-10.1) mg/dL 9.1 Magnesium (1.8-2.4) mg/dL 1.6 L Total Bilirubin (0.2-1.0) mg/dL 2.83 H Conjugated Bilirubin (0.0-0.2) mg/dL 2.2 H AST (15-37) U/L 83 H ALT (16-63) U/L 85 H Alkaline Phosphatase (46-116) U/L 387 H Troponin I (<or=76) ng/L 52 C-Reactive Protein (<or=0.5) mg/dL > 25.00 H Total Protein (6.4-8.2) g/dL 6.7 Albumin (3.4-5.0) g/dL 2.1 L Lipase (<78) U/L 32 Procalcitonin ng/mL > 190.00 Urine Color (Yellow) Dark Yellow Urine Clarity (Clear) Cloudy Urine pH (5-8) 5.0 Ur Specific [place] (1.005-1.025) 1.015 Urine Protein (Neg-Trace) mg/dL 100 H Urine Ketones (Negative) mg/dL Negative Urine Blood (Negative) Trace-intact H Urine Nitrite (Negative) Negative Urine Bilirubin (Negative) Moderate H Urine Urobilinogen (Up to 0.2) mg/dL 4.0 H Ur Leukocyte Esterase (Negative) Negative Urine RBC (0-2) HPF 0-2 Urine WBC (0-5) HPF Negative Ur Epithelial Cells (Negative) HPF Few Urine Crystals (Negative) HPF Moderate Amorphous Urine Bacteria (Negative) HPF Rare Urine Casts (Negative) LPF 5-10 Fine Granular Urine Mucus (Negative) Trace Ur Culture Indicated? No Urine Glucose (Negative) mg/dL Negative COVID-19 Source Nasopharynx SARS-CoV-2 (PCR) (Negative) Negative Influenza Type A (PCR) (Negative) Negative Influenza Type B (PCR) (Negative) Negative RSV (PCR) (Negative) Positive A* Quality:SDOH Health Related Social Needs: No Data to Display PFSH All Active Problems Ascending cholangitis (Acute) Septic shock (Acute) Vomiting (Acute) Abdominal pain (Acute) Cholelithiasis (Acute) Plantar fasciitis, left (Acute) Ureteral calculus, left (Acute) Hyperglycemia (Acute) Tubular adenoma (Acute ~04/2023) Bronchiectasis (Acute) Asthma (Chronic) History of lung cancer (Acute) Cough (Acute) Acne rosacea (Acute) Hearing loss (Acute) diminished hearing History of bronchoscopy (Acute) History of umbilical hernia repair (Acute 07/25/15) Hyperlipidemia (Acute) Hypertension (Acute) 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 Unknown, if any, significance Sciatica (Acute) recurrent left sided sciatica Status post rotator cuff repair (Acute) Medical History Injury of muscle of chest wall Encounter for screening colonoscopy Non-Hodgkin's lymphoma Type B. Last received chemotherapy 2020 Asthma exacerbation Acute viral syndrome Acute dyspnea Muscle spasm Back pain Hypertension Pt. denies Hyperlipidemia Surgical History History of colonoscopy (~04/2023) path sent History of lobectomy of lung Upper RIGHTlobe Rotator Cuff Repair LEFT X 2 Repair of umbilical hernia Bronchoscopy (09/27/14) Family History Mother Alcohol use disorder Father Cancer Brother Alcohol use disorder Cancer Diabetes Substance use disorder Maternal Grandmother Breast cancer Maternal Grandfather Alcohol use disorder Social History Smoking/Tobacco Use Status: Former Tobacco Use tobacco type: pipe and cigars Quit Date: 06/23/02 Tobacco: How many years used: 25 Smokeless tobacco user: other (pipe and cigar) Quit status: quit date established Smoking risk assessment performed?: Yes Alcohol Intake: former Year quit: 2010 Drug use: Never Substance use type: does not use Adopted: No Caregiver/Support person: No Household members: spouse Housing: house Number of Children: 5 number of grandchildren: 1 Communication Needs: Hard of Hearing Education Level: college Details: BS History and Education Do you need help understanding health information?: Rarely Sexually active: Yes Do you think of yourself as: straight/heterosexual Current gender identity: male What is your relationship status?: How often do you attend cheondoism or rastafari services?: 4 or more times per year Do you belong to any clubs or organized social groups?: no Panel score (0-1 are the most socially isolated patients): 2 What type of physical activity do you participate in: walking and other Details: Rowing Emely/Denominational: Buddhist Special emely needs: No Seatbelt use: sometimes Helmet use: No Drive intox or ride w/intox mobile lounge driver: No Firearms in home: Yes Firearms unloaded and locked: Yes Do you feel safe at home: Yes Do you feel safe in your relationship?: Yes Victim of physical abuse: No Victim of emotional abuse: No Victim of sexual abuse: No Would you like helpful sources: No Additional Social history: unable to assess privately, 05/19/23-kevin
[2024-06-27] MEDS: Normal Saline 1,000 ML 1000 ML IV ×2 (08:56→10:13)
[2024-06-27 08:57] LABS: BE (Venous) -5 mmol/L (-2-3); HCO3 (Venous) 20 mmol/L (23-28); O2 Sat (Venous) 78 %; TCO2 (Venous) 18 mmol/L (24-29); pCO2 (Venous) 32 mmHg (41-51); pO2 (Venous) 41 mmHg
[2024-06-27 08:59] LABS: Lactate 6.3 mmol/L (0.6-1.4)
[2024-06-27 09:01] LABS: HGB 14.5 g/dL (13.5-17.5); MCH 29.9 pg (27.0-33.0); MCHC 34.5 % (32.0-36.0); MCV 87 fL (80-95); Nucleated RBC 0.1 % (0.0-0.3); RBC 4.85 10^6/uL (4.36-5.78); RDW 13.3 % (11.8-14.1); RDW-SD 41.9 fL
[2024-06-27] MEDS: Ketorolac 15 MG/ML VIAL IVP (09:01)
[2024-06-27] MEDS: ACETAMINOPHEN 1,000 MG/100 ML BAG 400 MG IVPB (09:02)
[2024-06-27 09:14] LABS: Absolute Lymphocyte Count 0.36 10^3/uL (1.2-3.4); Absolute Monocyte Count 0.36 10^3/uL (0.1-0.8); Bands % 14 %; Diff Comment Manual Differential; Platelet Count 83 10^3/uL (130-400); RBC Morphology Normal; WBC 36.02 10^3/uL (4.4-10.8)
[2024-06-27 09:20] LABS: ALT 85 U/L (16-63); AST 83 U/L (15-37); Albumin 2.1 g/dL (3.4-5.0); Alkaline Phosphatase 387 U/L (46-116); Anion Gap 14.6 mmol/L (3-11); BUN 78 mg/dL (7-18); Bilirubin, Direct 2.2 mg/dL (0.0-0.2); Bilirubin, Total 2.83 mg/dL (0.2-1.0); CO2 22.4 mmol/L (21.0-32.0); Calcium 9.1 mg/dL (8.5-10.1); Chloride 97 mmol/L (98-107); Estimated GFR 10.97 (mL/min/1.73m2); Glucose 131 mg/dL (74-106); Lipase 32 U/L (<78); Magnesium 1.6 mg/dL (1.8-2.4); Potassium 3.9 mmol/L (3.5-5.1); Sodium 134 mmol/L (136-145); Total Protein 6.7 g/dL (6.4-8.2); Troponin I 52 ng/L (<or=76)
[2024-06-27] MEDS: Normal Saline - Diluent 50 ML VIAL IJ (09:23)
[2024-06-27 09:25] LABS: CREATININE 5.4 mg/dL (0.70-1.30)
[2024-06-27] MEDS: Omnipaque 350 MG/ML 100 ML BTL IJ (09:28)
[2024-06-27 09:31] LABS: Procalcitonin > 190.00 ng/mL
[2024-06-27 09:34] LABS: C-Reactive Protein > 25.00 mg/dL (<or=0.5)
[2024-06-27] MEDS: Piperacillin/Tazobactam 3.375 GM VIAL (09:51)
--- NOTE | 2024-06-27 09:51 | DI.VRAD_ITS ---
Addendum created by Rissa Woodard MD on 06/27/2024 9:51:12 AM EST: Findings were discussed with ADIN Aquino on 06/27/2024 9:50 AM EST Initial report created on 06/27/2024 9:49:38 AM EST: PROCEDURE INFORMATION: Exam: CT Abdomen And Pelvis With Contrast Exam date and time: 06/27/2024 9:21 AM Age: 64 years old Clinical indication: Pain; Other: Ruq tenderness, vomiting, septic; Prior surgery; Surgery date: 6+ months; Surgery type: Lumpectomy right lung. Hernia repair TECHNIQUE: Imaging protocol: Computed tomography of the abdomen and pelvis with contrast. Contrast material: OMNIAPQUE 350; Contrast volume: 100 ml; Contrast route: INTRAVENOUS (IV); COMPARISON: CT ABDOMEN PELVIS W 12/11/2023 1:45 PM FINDINGS: Liver: Evaluation limited by incomplete imaging of the liver and gallbladder. Fatty infiltration of the liver. Gallbladder and biliary ducts: Gallbladder wall thickening with pericholecystic inflammatory changes and fluid, compatible with acute cholecystitis. Pancreas: Normal. No ductal dilation. Spleen: Normal. No splenomegaly. Adrenal glands: Normal. No mass. Kidneys and ureters: Normal. No hydronephrosis. Stomach and bowel: Small duodenal diverticulum. Appendix: No evidence of appendicitis. Intraperitoneal space: Unremarkable. No free air. No significant fluid collection. Vasculature: Unremarkable. No abdominal aortic aneurysm. Lymph nodes: Unremarkable. No enlarged lymph nodes. Urinary bladder: Unremarkable as visualized. Reproductive: Unremarkable as visualized. Bones/joints: Unremarkable. No acute fracture. Soft tissues: Unremarkable. IMPRESSION: 1. Gallbladder wall thickening with pericholecystic inflammatory changes and fluid, compatible with acute cholecystitis. 2. Evaluation limited by incomplete imaging of the liver and gallbladder. Dictated and Authenticated by: Rissa Woodard MD. Ordering:KEELY Zelaya MD
--- NOTE | 2024-06-27 10:08 | DI.RAD_ITS ---
Exam(s) XR LINE PLACEMENT PICC/CVA EXAM: XR LINE PLACEMENT PICC/CVA CLINICAL HISTORY: central line placement. TECHNIQUE: 2D digital imaging was performed. COMPARISON: CT CT ABDOMEN PELVIS W from 06/27/2024 FINDINGS: Single AP upright portable view of the chest Distal tip of the right internal jugular central line is in satisfactory position in the SVC. Heart size is upper normal. Mediastinum is not widened There mild pleural based increased markings in the right lung base. Remainder of the lungs appear cl ear. No pleural effusions evident. No pneumothorax. No fractures. IMPRESSION: Right lung base scarring. No acute pulmonary findings. Right internal jugular central line is in satisfactory position in the SVC DATA REPOSITORY: RADIATION DOSE DELIVERED:
[2024-06-27] MEDS: AZITHROMYCIN 500 MG in Normal Saline 250 ML 250 MG IVPB (10:12)
[2024-06-27] MEDS: VANCOMYCIN 2,000 MG in Normal Saline 500 ML 333.3333 MG IVPB (10:13)
[2024-06-27] MEDS: Norepinephrine in D5W 8 MG/250 ML BAG 3.75 MG IV (10:33)
--- NOTE | 2024-06-27 10:33 | DI.VRAD_ITS ---
PROCEDURE INFORMATION: Exam: XR Chest Exam date and time: 06/27/2024 10:20 AM Age: 64 years old Clinical indication: Device placement; Prior surgery; Surgery date: 6+ months; Surgery type: Left lumpectomy TECHNIQUE: Imaging protocol: Radiologic exam of the chest. Views: 1 view. COMPARISON: CT CHEST PE CTA 11/12/2022 8:47 AM FINDINGS: Lungs: Unremarkable. No consolidation. Pleural spaces: Unremarkable. No pleural effusion. No pneumothorax. Heart/Mediastinum: Unremarkable. No cardiomegaly. Vasculature: Right IJ line terminates in the mid SVC. Bones/joints: Remote left-sided rib fractures. IMPRESSION: Right IJ line terminates in the mid SVC. Dictated and Authenticated by: Rissa Woodard MD. Ordering:CHELA Zelaya MD
[2024-06-27 10:35] LABS: COVID-19 PCR Negative (Negative); Influenza A PCR Negative (Negative); Influenza B PCR Negative (Negative); Source Nasopharynx
[2024-06-27 10:36] LABS: RSV PCR Positive (Negative)
--- NOTE | 2024-06-27 10:52 | W.EDPROG ---
Date of service: 06/27/24 Time of Service: 10:52 Medical Decision Making Patient was seen by Garcia Charlton. Please refer to his HPI, physical exam, assessment and plan. Patient was found to be tachycardic, hypotensive and in shock with tachypnea. Patient qualified for sepsis, and septic shock. Patient has abdominal pain, and was seen here recently for cholelithiasis without evidence to suggest cholecystitis. Patient states over the last few days he has been getting worse, but states he was toughing it out at home. Physical exam demonstrates evidence of septic shock, abdominal pain and tenderness in the right upper quadrant. Concern for cholecystitis. CT imaging shows evidence of cholecystitis. Laboratory workup demonstrates notable white count at 36, left shift, bandemia of 14%. pH is normal. Lactate elevated at 6.3. Because of the patient's evidence of an acute surgical abdomen, and is evidence of imminent life-threatening danger with a septic shock, I did recommend CT imaging without waiting on labs. Patient does demonstrate need for emergent surgical intervention. Electrolytes are stable. Anion gap 14, transaminases mildly elevated in the 80s, bili 2.8, conjugated bili 2.2, CRP greater than 25, troponin 52, procalcitonin greater than 190, RSV positive. Renal function demonstrates notable acute drop with a creatinine of 5.4 and a GFR of 10.9. Patient was resuscitated with 30 cc/kg ideal body weight fluid bolus, Vanco, Zosyn were started. And azithromycin. Because of the patient's septic shock a central line was placed in the right IJ without complication. He was started on Levophed and is currently on 7 mics per minute. Will titrate for MAP greater than 65. Case was discussed with Dr. Alicea, she recommends appropriate transfer to [facility]. Patient will be emergently transferred to [facility] for further surgical and critical care management. At time of transfer the patient was reassessed and continued to demonstrate No signs of acute respiratory distress requiring intubation or rapidly declining mental status. Quality:SDOH Health Related Social Needs: No Data to Display Procedures Central Line Placement Right IJ: Time Out Performed: Yes Patient Placed on Monitor/Pulse Ox: Yes MD Prep: mask, gown and gloves Central Line Prep: Chlorhexidine scrub and sterile drapes applied Local Anesthetic: Lidocaine 1% Amount of anesthesia used (mL): 4 Ultrasound Used for Placement: Yes Central Line Lumen Inserted: triple Post Procedure: good blood return, all ports aspirated, flushed, capped and sutured in place with 2-0 silk Post Procedure X-Ray: tip of catheter in good position Patient Tolerated Procedure: well and no complications Complications: none Critical Care Time Critical Care Time Critical Care Time: Yes Total Critical Care Time: 100 Attestation: Upon my evaluation, this patient had a high probability of imminent or life-threatening deterioration, which required my direct attention, intervention, and personal management. I have personally provided 100 minutes of critical care time exclusive of time spent on separately billable procedures. Time includes review of laboratory data, radiology results, discussion with consultants, and monitoring for potential decompensation. Interventions were performed as documented. Discharge Plan Disposition Patient Disposition: Transfer-Acute Inpatient Care Specific Acute Inpt Facility: [facility] Condition: Serious Discharge Details Clinical Impression: Septic shock, Ascending cholangitis, Acute cholecystitis Primary Care Provider: Rayray Rojas ED Provider: Garcia Charlton [place] Meds and New Rx's Prescriptions: No Action famotidine 40 mg tablet 40 mg PO DAILY Qty: 60 11RF gabapentin 300 mg capsule See Rx Instructions .ROUTE .COMPLEX Qty: 120 3RF Dose Instruction: TAKE 2 CAPSULES BY MOUTH THREE TIMES A DAY Rx Instructions: TAKE 2 CAPSULES BY MOUTH THREE TIMES A DAY albuterol sulfate [ProAir HFA] 90 mcg/actuation HFA aerosol inhaler 1 - 2 puff Inhalation Q4H PRN Qty: 3 6RF loratadine [Claritin] 10 mg tablet 10 mg PO DAILY ondansetron 4 mg tablet,disintegrating 4 mg PO Q6H PRN PRN (Reason: nausea and vomiting) Qty: 20 0RF Discharge Data Discharge Date/Time-TO BE ENTERED AT DEPARTURE: 06/27/24 12:32
[2024-06-27 11:23] LABS: Bilirubin Moderate (Negative); Blood Trace-intact (Negative); Clarity Cloudy (Clear); Glucose Negative (Negative); Ketones Negative (Negative); Leukocyte Esterase Negative (Negative); Nitrite Negative (Negative); Specific Gravity 1.015 (1.005-1.025)
[2024-06-27] MEDS: Normal Saline 1,000 ML 150 ML IV (11:23)
[2024-06-27 11:32] LABS: Bacteria Rare HPF (Negative); C & S Indicated? No; Crystals Moderate Amorphous HPF (Negative); Epithelial Cells Few HPF (Negative); Mucus Trace (Negative); RBC 0-2 HPF (0-2); WBC Negative HPF (0-5)
[2024-06-27] MEDS: VASOPRESSIN 50 UNITS in Normal Saline 497.5 ML 24 UNITS IV (12:01)
[2024-06-27] MEDS: MORPHine 4 MG/ML SYR IVP (12:02)
== END 2024-06-27 12:32 | disposition short-term general hospital (02) ==
PROVIDERS: Emergency Provider Physician Assistant; PCP Nurse Practitioner Family
DX: K81.0 Acute cholecystitis (principal); K83.09 Other cholangitis; A41.9 Sepsis, unspecified organism; R11.2 Nausea with vomiting, unspecified; R50.9 Fever, unspecified
CPT/HCPCS: 00123; 36415; 36556; 51702; 77001; 80048; 80076; 82805; 83690; 84145; 87040; 87077; 87637; 96365; 96375; 99285; 99291; 74177; 81003; 81015; 83605; 83735; 84484; 85025; 86140; 87186; J0131; J0456; J1885; J2270; J2543; J2598; J3370; J3490

== ENCOUNTER 2024-07-10 15:05 | Observation (INO) | payer BC, SELFPAY ==
[2024-07-10] VITALS (27 sets, daily range): BP systolic 136–153; BP diastolic 42–103; PULSE 50–96; RESP 2–26; TEMP 36.6–37.2; O2SAT 89–98
--- NOTE | 2024-07-10 15:00 | RT.EKG_ITS ---
APPROVED REPORT Exam: Resting ECG Reason for Exam: sob Patient Location: E HR:83 bpm ECG Measurements Heart Rate 83 AXIS MS 145 P 76 QRSd 97 QRS 25 QT 490 T 76 QTc 574 Conclusion Sinus rhythm, rate 83 Prolongued QTc 574, increased from priors No STEMI
--- NOTE | 2024-07-10 15:15 | DI.RAD_ITS ---
Exam(s) XR CHEST 2V PA LATERAL EXAM: XR CHEST 2V PA LATERAL CLINICAL HISTORY: Crackles, productive cough, recent hospitalization TECHNIQUE: 2D digital imaging was performed. Two views. COMPARISON: CR,XR XR LINE PLACEMENT PICC/CVA from 06/27/2024 FINDINGS: HEART: Normal size. Aorta: Not dilated. PULMONARY VASCULATURE: Normal. MEDIASTINUM: Surgical clips noted in the right paratracheal and inferior lower right hilar region. LUNGS: Right-sided basilar scarring. Right-sided volume loss, postsurgical. No superimposed infiltr ate or pulmonary edema. PLEURAL SPACE: No pleural effusion or pneumothorax. BONE:Unremarkable for age. Old left rib fractures. SOFT TISSUES: Unremarkable. IMPRESSION: Postsurgical changes of the right chest. Right lower lobe scarring and volume loss. No acute abnorm ality. DATA REPOSITORY: RADIATION DOSE DELIVERED:
--- NOTE | 2024-07-10 15:23 | W.ED.GENAD ---
Discharge Plan Disposition Patient Disposition: Admit to [facility] Condition: Stable Discharge Details Chief Complaint: RespSymp Clinical Impression: Exacerbation of reactive airway disease, Hypertension, Hyperlipidemia, RSV infection Primary Care Provider: Rayray Rojas ED Provider: Mary Robison Home Meds and New Rx's Prescriptions: No Action famotidine 40 mg tablet 40 mg PO DAILY Qty: 60 11RF methocarbamol 1,000 mg tablet 1,000 mg PO TID polyethylene glycol 3350 [Miralax] 17 gram/dose powder 17 g PO DAILY gabapentin 300 mg capsule See Rx Instructions .ROUTE .COMPLEX Qty: 120 3RF Dose Instruction: TAKE 2 CAPSULES BY MOUTH THREE TIMES A DAY Rx Instructions: TAKE 2 CAPSULES BY MOUTH THREE TIMES A DAY albuterol sulfate [ProAir HFA] 90 mcg/actuation HFA aerosol inhaler 1 - 2 puff Inhalation Q4H PRN Qty: 3 6RF loratadine [Claritin] 10 mg tablet 10 mg PO DAILY ondansetron 4 mg tablet,disintegrating 4 mg PO Q6H PRN PRN (Reason: nausea and vomiting) Qty: 20 0RF HPI General Mode of arrival: ambulatory. Date/Time Provider Initiated Documentation: 07/10/24 15:07. Limitations to Documentation: no limitations. Information obtained by: patient, family and old records reviewed. HPI Narrative: HPI: This is a 64-year-old male patient with a past medical history most notable for recent admission to [facility] for septic shock due to and ascending cholangitis, complicated by hypoxemic respiratory failure due to RSV, E. coli bacteremia, and KING due to septic shock. He also has a history of non-Hodgkin's lymphoma, currently in remission, hypertension, hyperlipidemia, and asthma. He is presenting today 1 week after discharge from [facility] with shortness of breath, cough, and crackles/wet lung sounds on home health nurse examination today. He reports that he has been taking his Bactrim as prescribed, has 1 day left of his course. He has not noted a fever at home, but has had a cough productive of thin white mucus. He denies chest pain, abdominal pain, has had some nausea associated with the coughing. He has no personal history of heart failure, does not note any peripheral edema or swelling. Exam: Gen: Awake and alert, appears in respiratory distress HEENT: Non-icteric sclera Neck: Supple Lungs: Tachypnea, frequent coughing episodes with production of scant white mucus. Lung sounds with left base right greater than right base crackles CV: Appears well perfused, heart with regular rate and rhythm, strong distal pulses, chest wall without tenderness to palpation Abdomen: Non-distended, soft, nontender, well-healing laparoscopy incisions noted MSK: Moves 4 extremities without apparent limitation in ROM. No peripheral edema, no unilateral calf swelling or tenderness Skin: Visualized skin without rashes, cyanosis. Neuro: Normal Gait, no obvious focal deficits or facial asymmetry. Speaks in full, clear sentences. Psych: Appropriate for situation. MDM: This is a 64-year-old male patient presenting for evaluation of shortness of breath and sputum production. My differential includes but is not limited to pneumonia, bronchitis, reactive airway disease exacerbation, pulmonary edema, pleural effusion. I did consider pulmonary embolism given the patient's recent hospitalization, the presence of wet lung sounds and the lack of tachycardia and hypoxia or DVT symptoms is reassuring against this. No chest pain to suggest ACS, pericarditis or myocarditis. We will obtain laboratory studies to include CBC, CMP, magnesium, troponin, BNP, and Fluvid. I will obtain a chest x-ray. I provided the patient with a dose of Zofran for nausea. ED Course: We obtained an EKG, which shows a sinus rhythm with a rate of 83, no evidence for ischemia, does have a prolonged QTc of 574. Laboratory studies show a white blood cell count of 10, decreased from 17 at time of discharge. No anemia, thrombocytosis persists at 600. Chemistry panel is significant for a BUN of 24 and a creatinine of 1.4, very slightly worsened from discharge, but no other evidence of electrolyte derangement or liver injury. BNP is modestly elevated to 401, troponin is negative x 2 checks. Viral swab continues to be positive for RSV. Chest x-ray was reviewed by myself, showing baseline scarring and no evidence of new infiltrates, pleural effusion, pulmonary edema. The patient had improvement in his work of breathing after a dose of magnesium, duo nebulizer, and prednisone was provided. I am most concerned for reactive airway disease exacerbation, and the patient does endorse that his nausea improved after Zofran. He states that he is having a significantly difficult time maintaining his oral intake in the outpatient environment, did have transient moments in time where his SpO2 was as low as 90 or 91 on room air but never required initiation of supplemental oxygen. I am concerned for his ability to succeed in the outpatient environment, and reach out to our hospitalist who is graciously accepted this patient for admission to their service for ongoing workup and management of his presumed reactive airway disease exacerbation. I did provide him with a second albuterol treatment and a dose of IV Tylenol while in the emergency department. He was transferred to the floor without incident and remained hemodynamically appropriate while under my care. Mary Robison MD Related Data Home Medications ?Medication ?Instructions ?Recorded ?Confirmed famotidine 40 mg tablet 40 mg PO DAILY #60 tabs 05/05/23 06/27/24 gabapentin 300 mg capsule See Rx Instructions .Route 09/01/23 06/27/24 .COMPLEX #120 caps albuterol sulfate 90 mcg/actuation 1 - 2 puff inhalation Q4H PRN ##3 01/05/24 06/27/24 aerosol inhaler (ProAir HFA) loratadine 10 mg tablet (Claritin) 10 mg PO DAILY 06/21/24 06/27/24 ondansetron 4 mg disintegrating 4 mg PO Q6H PRN PRN nausea and 06/21/24 06/27/24 tablet vomiting #20 tabs methocarbamol 1,000 mg tablet 1,000 mg PO TID 07/08/24 07/08/24 polyethylene glycol 3350 17 17 g PO DAILY 07/08/24 07/08/24 gram/dose oral powder (Miralax) Previous Rx's ?Medication ?Instructions ?Recorded famotidine 40 mg tablet 40 mg PO DAILY #60 tabs 05/05/23 gabapentin 300 mg capsule See Rx Instructions .Route 09/01/23 .COMPLEX #120 caps albuterol sulfate 90 mcg/actuation 1 - 2 puff inhalation Q4H PRN ##3 01/05/24 aerosol inhaler (ProAir HFA) ondansetron 4 mg disintegrating 4 mg PO Q6H PRN PRN nausea and 06/21/24 tablet vomiting #20 tabs Allergies Allergy/AdvReac Type Severity Reaction Status Date / Time No Known Allergies Allergy Verified 06/27/24 08:28 General Stated Complaint: RespSymp HAYLEY: 3 Course Vital Signs Vital signs: Vital Signs Temperature 36.6 C 07/10/24 15:09 Pulse 78 07/10/24 15:09 Respiratory Rate 20 07/10/24 15:09 Blood Pressure 151/91 H 07/10/24 15:09 Pulse Oximetry 96 07/10/24 15:09 Temperature 36.6 C 07/10/24 15:09 Temperature Source Oral 07/10/24 15:09 Pulse 78 07/10/24 15:09 Respiratory Rate 20 07/10/24 15:09 Blood Pressure 151/91 H 07/10/24 15:09 Pulse Oximetry 96 07/10/24 15:09 Medical Decision Making Quality:SDOH Health Related Social Needs: No Data to Display PFSH All Active Problems Exacerbation of reactive airway disease (Acute) Thrombocytosis (Acute) Anemia (Chronic) E coli bacteremia (Acute) RSV infection (Acute) Thrombocytopenia (Chronic) Acute cholecystitis (Acute) Ascending cholangitis (Acute) Septic shock (Acute) Vomiting (Acute) Abdominal pain (Acute) Cholelithiasis (Acute) Plantar fasciitis, left (Acute) Ureteral calculus, left (Acute) Hyperglycemia (Acute) Tubular adenoma (Acute ~04/2023) Bronchiectasis (Acute) Asthma (Chronic) History of lung cancer (Acute) Cough (Acute) Acne rosacea (Acute) Hearing loss (Acute) diminished hearing History of bronchoscopy (Acute) History of umbilical hernia repair (Acute 07/25/15) Hyperlipidemia (Acute) Hypertension (Acute) 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 Unknown, if any, significance Sciatica (Acute) recurrent left sided sciatica Status post rotator cuff repair (Acute) Medical History Injury of muscle of chest wall Encounter for screening colonoscopy Non-Hodgkin's lymphoma Type B. Last received chemotherapy 2020 Asthma exacerbation Acute viral syndrome Acute dyspnea Muscle spasm Back pain Hypertension Pt. denies Hyperlipidemia Surgical History History of colonoscopy (~04/2023) path sent History of lobectomy of lung Upper RIGHTlobe Rotator Cuff Repair LEFT X 2 Repair of umbilical hernia Bronchoscopy (09/27/14) Family History Mother Alcohol use disorder Father Cancer Brother Alcohol use disorder Cancer Diabetes Substance use disorder Maternal Grandmother Breast cancer Maternal Grandfather Alcohol use disorder Social History Smoking/Tobacco Use Status: Former Tobacco Use tobacco type: pipe and cigars Quit Date: 06/23/02 Tobacco: How many years used: 25 Smokeless tobacco user: other (pipe and cigar) Quit status: quit date established Smoking risk assessment performed?: Yes Alcohol Intake: former Year quit: 2010 Drug use: Never Substance use type: does not use Adopted: No Caregiver/Support person: No Household members: spouse Housing: house Number of Children: 5 number of grandchildren: 1 Communication Needs: Hard of Hearing Education Level: college Details: BS History and Education Do you need help understanding health information?: Rarely Sexually active: Yes Do you think of yourself as: straight/heterosexual Current gender identity: male What is your relationship status?: How often do you attend alevism or gnosticism services?: 4 or more times per year Do you belong to any clubs or organized social groups?: no Panel score (0-1 are the most socially isolated patients): 2 What type of physical activity do you participate in: walking and other Details: Rowing Emely/Religious: Pentecostal Special emely needs: No Seatbelt use: sometimes Helmet use: No Drive intox or ride w/intox boom truck driver: No Firearms in home: Yes Firearms unloaded and locked: Yes Do you feel safe at home: Yes Do you feel safe in your relationship?: Yes Victim of physical abuse: No Victim of emotional abuse: No Victim of sexual abuse: No Would you like helpful sources: No Additional Social history: unable to assess privately, 05/19/23-kevin
[2024-07-10 15:38] LABS: Abs Immature Grans 0.05 10^3/uL (0.0-0.06); Absolute Basophil Count 0.05 10^3/uL (0.0-0.2); Absolute Eosinophil Count 0.13 10^3/uL (0.0-0.7); Absolute Lymphocyte Count 0.76 10^3/uL (1.2-3.4); Absolute Monocyte Count 0.71 10^3/uL (0.1-0.8); Basophils % 0.5 %; Eosinophils % 1.2 %; HCT 40.8 % (40.0-50.0); HGB 13.7 g/dL (13.5-17.5); Immature Grans % 0.5 %; MCH 29.6 pg (27.0-33.0); MCHC 33.6 % (32.0-36.0); MCV 88 fL (80-95); MPV 10.7 fL (8.0-11.0); Monocytes % 6.5 %; Neutrophils % 84.3 %; Platelet Count 600 10^3/uL (130-400); RBC 4.63 10^6/uL (4.36-5.78); RDW 13.4 % (11.8-14.1); RDW-SD 42.9 fL; WBC 10.92 10^3/uL (4.4-10.8)
[2024-07-10 15:39] LABS: Absolute Neutrophil Count 9.21 10^3/uL (1.2-6.7)
[2024-07-10 15:48] LABS: Magnesium 2.1 mg/dL (1.8-2.4)
[2024-07-10 16:00] LABS: ALT 44 U/L (16-63); AST 36 U/L (15-37); Albumin 2.9 g/dL (3.4-5.0); Alkaline Phosphatase 123 U/L (46-116); Anion Gap 10.5 mmol/L (3-11); BUN 24 mg/dL (7-18); Bilirubin, Total 0.55 mg/dL (0.2-1.0); CO2 24.5 mmol/L (21.0-32.0); CREATININE 1.4 mg/dL (0.70-1.30); Calcium 9.3 mg/dL (8.5-10.1); Chloride 101 mmol/L (98-107); Estimated GFR 55.43 (mL/min/1.73m2); Glucose 112 mg/dL (74-106); NT-proBNP 401 pg/mL (<300); Potassium 4.6 mmol/L (3.5-5.1); Sodium 136 mmol/L (136-145); Total Protein 7.5 g/dL (6.4-8.2); Troponin I 9 ng/L (<or=76)
[2024-07-10] MEDS: MAGNESIUM SULFATE 2 GM/50 ML BAG IV_INF (16:02)
[2024-07-10] MEDS: predniSONE 20 MG TAB 60 MG PO (16:03)
[2024-07-10] MEDS: Albuterol/Ipratropium 3 ML UPD VIAL UPD ×2 (16:03→22:12)
[2024-07-10] MEDS: Ondansetron 4 MG/2 ML VIAL IVP (16:03)
[2024-07-10 16:41] LABS: COVID-19 PCR Negative (Negative); Influenza A PCR Negative (Negative); Influenza B PCR Negative (Negative)
[2024-07-10 16:45] LABS: Source Nasopharynx
[2024-07-10 16:46] LABS: RSV PCR Positive (Negative)
[2024-07-10 17:01] LABS: Troponin I 9 ng/L (<or=76)
--- NOTE | 2024-07-10 17:06 | DI.VRAD_ITS ---
PROCEDURE INFORMATION: Exam: XR Chest Exam date and time: 07/10/2024 4:33 PM Age: 64 years old Clinical indication: Other: Crackles, productive cough, recent hospitalization TECHNIQUE: Imaging protocol: Radiologic exam of the chest. Views: 2 views. COMPARISON: CR XR LINE PLACEMENT PICC/CVA 10/21/2024 10:20 FINDINGS: Lungs: Improved aeration of the right lung compared to the prior study. No focal consolidation. Pleural spaces: Mild right apical pleural thickening. Mild blunting of the right lateral costophrenic angle similar to prior study. Blunted left posterior costophrenic angle. Heart/Mediastinum: Surgical clips in the right paratracheal region similar to prior study. Vasculature: Removal of right IJ line. Diaphragm: Asymmetric elevation of the right hemidiaphragm with mild reticular markings at the right lung base similar to prior study. Flattening of the hemidiaphragms on the lateral view. Bones/joints: Again noted old left posterolateral rib fractures. IMPRESSION: 1. Parenchymal scarring involving the right hemithorax. No evidence for acute infiltrate. 2. Additional findings as discussed above. Dictated and Authenticated by: Elisa Suarez MD. Ordering:BEN Pinedo MD
[2024-07-10] MEDS: ACETAMINOPHEN 1,000 MG/100 ML BAG 400 MG IVPB (19:06)
[2024-07-10] MEDS: Albuterol 2.5 MG/3 ML INH SOLN VIAL UPD (19:06)
--- NOTE | 2024-07-10 19:29 | W.PM.HP.N ---
Date of service: 07/10/24 Time of Service: 19:29 Assessment and Plan Assessment and plan (1) RSV infection: Start date: 07/10/24 Start time: 19:50 Status: Acute Assessment and plan: The patient presents to the ED today due to worsening respiratory symptoms to include productive cough, wheezing and dyspnea. He was recently d/c from [facility] due to gangrenous cholecystitis s/p lap sivakumar complicated w/ sepsis, acute respiratory failure and RSV. 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 On clinical exam he has no signs of respiratory failure and is hemodynamically stable. He does have coughing fits as well as expiratory wheezes on pulmonary ausculation. He does have a history of DLBC and hypogammaglobulinemia. He has a [facility] asthma but this has been well controlled w/o the use of any ICS or regular use of rescue inhaler. His lab workup shows slight leukocytosis w/ 10.92. He also has thrombocytosis of 600k. His BNP is minimally elevated but does not have any clinical evidence of volume overload. He is negative for COVID 19, Influenza but is +RSV. Recommend to continue w/ conservative medical treatment for RSV w/ scheduled Duonebs, cough-suppressants, regular use of Flutter valve. -Obtain immunoglobulin levels to evaluate if he is hypogammaglobulinemic -Schedule Duonebs q4h, prn -Schedule cough suppressants w/ Tessalon perles and Robitussin DM -Schedule use of Flutter valve Full Code RAUL Harman [phone] (2) Thrombocytosis: Status: Acute Assessment and plan: He has a platelet value of 600k which I suspect is most likely reactive for now. Recommend to continue to monitor and repeat platelet labs in 1 month to re-evaluate if it continues to be elevated. 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 Coli bacteremia. He comes in tonight due to progressive worsening dyspnea s/p [facility] discharge. He has constant dyspnea at rest and w/ exertion, productive cough w/ clear sputum and wheezing. He denies any chest pain, palpitaitons, weight gain or lower extremity edema. He also has a PMH of asthma but is normally well controlled not requiring the use of CSI and rarely uses his rescue inhaler. Currently he has been unable to use his inhaler as he is unable to take a deep breath. Associated symptoms include subjective fever (99F), chills, night sweats, rhinorrhea and nasal congestion. He also has a mild headache which is described as a pressure-like sensation, rated 2/10. He denies any maxiallary sinus pain. He has no abdominal pain but has persistent nausea/vomiting and no diarrhea, melena or hematochezia. His notes that he participates in the local [employer] and multiple people have been sick w/ viral respiratory illness. He has no recent domestic or international travel history. He works at [employer] and does have frequent contact w/ hazardous chemicals such as diesel fuel and Formate. Review of Systems Constitutional Constitutional: Reports chills, Reports fatigue, Reports fever(s), Reports headache(s) and Reports night sweats Eyes Eyes: Denies blurry vision, Denies diplopia, Denies loss of vision and Denies eye pain ENT Ears, Nose, Mouth, and Throat: Reports headache(s), Reports nasal congestion, Denies nose pain and Denies sinus pressure Cardiovascular Cardiovascular: Denies chest pain, Denies chest pain at rest, Denies rapid heart rate, Denies irregular heart rhythm, Reports dyspnea and Reports dyspnea on exertion Respiratory Respiratory: Reports chest congestion, Reports cough, Denies hemoptysis, Reports dyspnea, Reports dyspnea on exertion and Reports wheezing Gastrointestinal Gastrointestinal: Denies melena, Denies hematochezia, Denies diarrhea, Reports nausea, Reports vomiting and Denies hematemesis Musculoskeletal Musculoskeletal: Denies myalgias, Denies arthralgias and Denies joint swelling Neurologic Neurologic: Denies behavioral changes, Denies confusion, Reports headache(s) and Denies loss of vision Psychiatric Psychiatric: Denies behavioral changes and Denies confusion Endocrine Endocrine: Reports fatigue Allergic/Immunologic Allergic/Immunologic: Reports wheezing PFSH All Active Problems Exacerbation of reactive airway disease (Acute) Thrombocytosis (Acute) Anemia (Chronic) E coli bacteremia (Acute) RSV infection (Acute) Thrombocytopenia (Chronic) Acute cholecystitis (Acute) Ascending cholangitis (Acute) Septic shock (Acute) Vomiting (Acute) Abdominal pain (Acute) Cholelithiasis (Acute) Plantar fasciitis, left (Acute) Ureteral calculus, left (Acute) Hyperglycemia (Acute) Tubular adenoma (Acute ~04/2023) Bronchiectasis (Acute) Asthma (Chronic) History of lung cancer (Acute) Cough (Acute) Acne rosacea (Acute) Hearing loss (Acute) diminished hearing History of bronchoscopy (Acute) History of umbilical hernia repair (Acute 07/25/15) Hyperlipidemia (Acute) Hypertension (Acute) 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 Unknown, if any, significance Sciatica (Acute) recurrent left sided sciatica Status post rotator cuff repair (Acute) Medical History Injury of muscle of chest wall Encounter for screening colonoscopy Non-Hodgkin's lymphoma Type B. Last received chemotherapy 2020 Asthma exacerbation Acute viral syndrome Acute dyspnea Muscle spasm Back pain Hypertension Pt. denies Hyperlipidemia Surgical History History of colonoscopy (~04/2023) path sent History of lobectomy of lung Upper RIGHTlobe Rotator Cuff Repair LEFT X 2 Repair of umbilical hernia Bronchoscopy (09/27/14) Family History Mother Alcohol use disorder Father Cancer Brother Alcohol use disorder Cancer Diabetes Substance use disorder Maternal Grandmother Breast cancer Maternal Grandfather Alcohol use disorder Social History Smoking/Tobacco Use Status: Former Tobacco Use tobacco type: pipe and cigars Quit Date: 06/23/02 Tobacco: How many years used: 25 Smokeless tobacco user: other (pipe and cigar) Quit status: quit date established Smoking risk assessment performed?: Yes Alcohol Intake: former Year quit: 2010 Drug use: Never Substance use type: does not use Adopted: No Caregiver/Support person: No Household members: spouse Housing: house Number of Children: 5 number of grandchildren: 1 Communication Needs: Hard of Hearing Education Level: college Details: BS History and Education Do you need help understanding health information?: Rarely Sexually active: Yes Do you think of yourself as: straight/heterosexual Current gender identity: male What is your relationship status?: How often do you attend temple or caodaism services?: 4 or more times per year Do you belong to any clubs or organized social groups?: no Panel score (0-1 are the most socially isolated patients): 2 What type of physical activity do you participate in: walking and other Details: Rowing Emely/Gnosticist: Adventism Special emely needs: No Seatbelt use: sometimes Helmet use: No Drive intox or ride w/intox garbage truck driver: No Firearms in home: Yes Firearms unloaded and locked: Yes Do you feel safe at home: Yes Do you feel safe in your relationship?: Yes Victim of physical abuse: No Victim of emotional abuse: No Victim of sexual abuse: No Would you like helpful sources: No Additional Social history: unable to assess privately, 05/19/23-b Meds Allergies and Home Medications Allergies Allergy/AdvReac Type Severity Reaction Status Date / Time No Known Allergies Allergy Verified 06/27/24 08:28 Home Medications ?Medication ?Instructions ?Recorded ?Confirmed ?Type famotidine 40 mg tablet 40 mg PO DAILY #60 tabs 05/05/23 06/27/24 Rx gabapentin 300 mg capsule See Rx Instructions .Route 09/01/23 06/27/24 Rx .COMPLEX #120 caps albuterol sulfate 90 mcg/actuation 1 - 2 puff inhalation Q4H PRN ##3 01/05/24 06/27/24 Rx aerosol inhaler (ProAir HFA) loratadine 10 mg tablet (Claritin) 10 mg PO DAILY 06/21/24 06/27/24 History ondansetron 4 mg disintegrating 4 mg PO Q6H PRN PRN nausea and 06/21/24 06/27/24 Rx tablet vomiting #20 tabs methocarbamol 1,000 mg tablet 1,000 mg PO TID 07/08/24 07/08/24 History polyethylene glycol 3350 17 17 g PO DAILY 07/08/24 07/08/24 History gram/dose oral powder (Miralax) Exam Const General: cooperative, healthy appearing, comfortable and no acute distress Nutritional Appearance: well nourished Orientation: alert, awake and oriented x3 [facility] Head: normal to inspection Ears: hearing grossly normal bilaterally General nose exam: external nose normal Face and sinus: normal facial exam Eyes General: appearance normal, both eyes and all related structures Alignment and Position: alignment normal Eyelids: eyelids normal Conjunctivae: conjunctivae normal Neck Neck: normal visual inspection, full ROM and no lymphadenopathy Chest Chest: normal inspection of the chest Resp Effort & Inspection: normal respiratory effort, no use of accessory muscles and prolonged expiratory phase Auscultation: wheezes Cardio Rate: regular rate Rhythm: regular rhythm Heart Sounds: S1 normal and S2 normal GI Inspection: normal to inspection Palpation: soft Percussion: normal to percussion Auscultation: normal bowel sounds Skin General skin exam: no rashes or lesions noted Neuro General: patient alert, patient awake and patient oriented x3 Cranial Nerves: CN's II-XI intact bilaterally Extrem General: normal to inspection and capillary refill normal Psych Appearance: grossly normal Mental Status: mental status grossly normal Results Imaging Imaging Studies: CXR: Lungs: Improved aeration of the right lung compared to the prior study. No focal consolidation. Pleural spaces: Mild right apical pleural thickening. Mild blunting of the right lateral costophrenic angle similar to prior study. Blunted left posterior costophrenic angle. Heart/Mediastinum: Surgical clips in the right paratracheal region similar to prior study. Vasculature: Removal of right IJ line. Diaphragm: Asymmetric elevation of the right hemidiaphragm with mild reticular markings at the right lung base similar to prior study. Flattening of the hemidiaphragms on the lateral view. Bones/joints: Again noted old left posterolateral rib fractures. Labs 07/10/24 15:30 07/10/24 15:30 Labs: Laboratory Results - last 24 hr 07/10/24 07/10/24 07/10/24 15:30 15:55 16:37 WBC 10.92 H RBC 4.63 Hgb 13.7 Hct 40.8 MCV 88 MCH 29.6 MCHC 33.6 RDW 13.4 Plt Count 600 H MPV 10.7 Immature Gran % 0.5 Neutrophils % 84.3 Lymphocytes % 7.0 Monocytes % 6.5 Eosinophils % 1.2 Basophils % 0.5 Nucleated RBC % 0.0 Absolute Neutrophils 9.21 H Absolute Lymphocytes 0.76 L Absolute Monocytes 0.71 Absolute Eosinophils 0.13 Absolute Basophils 0.05 Sodium 136 Potassium 4.6 Chloride 101 Carbon Dioxide 24.5 Anion Gap 10.5 BUN 24 H Creatinine 1.4 H Est GFR (CKD-EPI 2020) 55.43 Glucose 112 H Calcium 9.3 Magnesium 2.1 Total Bilirubin 0.55 AST 36 ALT 44 Alkaline Phosphatase 123 H Troponin I 9 9 NT-Pro-B Natriuret Pep 401 H Total Protein 7.5 Albumin 2.9 L COVID-19 Source Nasopharynx SARS-CoV-2 (PCR) Negative Influenza Type A (PCR) Negative Influenza Type B (PCR) Negative RSV (PCR) Positive A* 07/10/24 18:17 WBC RBC Hgb Hct MCV MCH MCHC RDW Plt Count MPV Immature Gran % Neutrophils % Lymphocytes % Monocytes % Eosinophils % Basophils % Nucleated RBC % Absolute Neutrophils Absolute Lymphocytes Absolute Monocytes Absolute Eosinophils Absolute Basophils Sodium Potassium Chloride Carbon Dioxide Anion Gap BUN Creatinine Est GFR (CKD-EPI 2020) Glucose Calcium Magnesium Total Bilirubin AST ALT Alkaline Phosphatase Troponin I Cancelled NT-Pro-B Natriuret Pep Total Protein Albumin COVID-19 Source SARS-CoV-2 (PCR) Influenza Type A (PCR) Influenza Type B (PCR) RSV (PCR) Last Vital Signs Temp 36.6 C 07/10/24 15:09 Pulse 50 L 07/10/24 18:46 Resp 22 07/10/24 18:46 BP 143/65 H 07/10/24 18:46 Pulse Ox 90 L 07/10/24 18:46 Time Spent Time spent with Patient: 40-54 minutes Time was spent: preparing to see the patient(eg.review tests), obtaining and/or reviewing separately otained hiistory, ordering medications,tests, procedures, referring, communicating with other health direct care specialist, indepentently interpreting results, counseling the patient and care coordination
--- NOTE | 2024-07-10 21:13 | W.PC.ACHO ---
Registration Status: Primary Language: Preferred Language: ED Information & Data Chief Complaint RespSymp 07/10/24 15:37 Chief Complaint RespSymp 07/10/24 15:23 Triage Note Patient complaining of diff 07/10/24 15:09 breathing, vomiting and cough for 1 week Medical / Surgical History (Last Reviewed 07/10/24 @ 19:43 by Lawson Espinal MD) Injury of muscle of chest wall Encounter for screening colonoscopy Non-Hodgkin's lymphoma Asthma exacerbation Acute viral syndrome Acute dyspnea Muscle spasm Back pain Hypertension Hyperlipidemia (Last Reviewed 07/10/24 @ 19:42 by Lawson Espinal MD) History of colonoscopy (~04/2023) History of lobectomy of lung Rotator Cuff Repair Repair of umbilical hernia Bronchoscopy (09/27/14) Most Recent Vital Signs Temperature 37.1 C 07/10/24 20:49 Temperature Source Temporal Artery Scan 07/10/24 20:49 Pulse 64 07/10/24 20:49 Pulse 80 07/10/24 20:31 Respiratory Rate 22 07/10/24 20:49 Respiratory Effort Short of Breath 07/10/24 15:37 Respiratory Depth Normal 07/10/24 15:37 Blood Pressure 138/97 H 07/10/24 20:49 Blood Pressure Mean 110 07/10/24 20:31 Blood Pressure Position Sitting 07/10/24 20:49 Pulse Oximetry 95 07/10/24 20:49 Oxygen Delivery Method Room Air 07/10/24 20:49 Allergies No Known Allergies Allergy (Verified 06/27/24 08:28) Precautions Isolation Standard precaution 07/10/24 15:37 IV IV Catheter Type [Right Peripheral IV Forearm] IV Catheter Gauge [Right 20 Forearm] Diet Orders Category Date Time Status Regular/Normal [DIET] Nutrition 07/11/24 Breakfast Ordered Diagnostics 07/10/24 07/10/24 07/10/24 Range/Units 18:17 16:37 15:55 WBC (4.4-10.8) 10^3/uL RBC (4.36-5.78) 10^6/uL Hgb (13.5-17.5) g/dL Hct (40.0-50.0) % MCV (80-95) fL MCH (27.0-33.0) pg MCHC (32.0-36.0) % RDW (11.8-14.1) % Plt Count (130-400) 10^3/uL MPV (8.0-11.0) fL Immature Gran % % Neutrophils % % Lymphocytes % % Monocytes % % Eosinophils % % Basophils % % Nucleated RBC % (0.0-0.3) % Absolute Neutrophils (1.2-6.7) 10^3/uL Absolute Lymphocytes (1.2-3.4) 10^3/uL Absolute Monocytes (0.1-0.8) 10^3/uL Absolute Eosinophils (0.0-0.7) 10^3/uL Absolute Basophils (0.0-0.2) 10^3/uL Sodium (136-145) mmol/L Potassium (3.5-5.1) mmol/L Chloride (98-107) mmol/L Carbon Dioxide (21.0-32.0) mmol/L Anion Gap (3-11) mmol/L BUN (7-18) mg/dL Creatinine (0.70-1.30) mg/dL Est GFR (CKD-EPI 2020) (mL/min/1.73m2) Glucose (74-106) mg/dL Calcium (8.5-10.1) mg/dL Magnesium (1.8-2.4) mg/dL Total Bilirubin (0.2-1.0) mg/dL AST (15-37) U/L ALT (16-63) U/L Alkaline Phosphatase (46-116) U/L Troponin I Cancelled 9 (<or=76) ng/L NT-Pro-B Natriuret Pep (<300) pg/mL Total Protein (6.4-8.2) g/dL Albumin (3.4-5.0) g/dL IgG IgA IgM COVID-19 Source Nasopharynx SARS-CoV-2 (PCR) Negative (Negative) Influenza Type A (PCR) Negative (Negative) Influenza Type B (PCR) Negative (Negative) RSV (PCR) Positive A* (Negative) 07/10/24 Range/Units 15:30 WBC 10.92 H (4.4-10.8) 10^3/uL RBC 4.63 (4.36-5.78) 10^6/uL Hgb 13.7 (13.5-17.5) g/dL Hct 40.8 (40.0-50.0) % MCV 88 (80-95) fL MCH 29.6 (27.0-33.0) pg MCHC 33.6 (32.0-36.0) % RDW 13.4 (11.8-14.1) % Plt Count 600 H (130-400) 10^3/uL MPV 10.7 (8.0-11.0) fL Immature Gran % 0.5 % Neutrophils % 84.3 % Lymphocytes % 7.0 % Monocytes % 6.5 % Eosinophils % 1.2 % Basophils % 0.5 % Nucleated RBC % 0.0 (0.0-0.3) % Absolute Neutrophils 9.21 H (1.2-6.7) 10^3/uL Absolute Lymphocytes 0.76 L (1.2-3.4) 10^3/uL Absolute Monocytes 0.71 (0.1-0.8) 10^3/uL Absolute Eosinophils 0.13 (0.0-0.7) 10^3/uL Absolute Basophils 0.05 (0.0-0.2) 10^3/uL Sodium 136 (136-145) mmol/L Potassium 4.6 (3.5-5.1) mmol/L Chloride 101 (98-107) mmol/L Carbon Dioxide 24.5 (21.0-32.0) mmol/L Anion Gap 10.5 (3-11) mmol/L BUN 24 H (7-18) mg/dL Creatinine 1.4 H (0.70-1.30) mg/dL Est GFR (CKD-EPI 2020) 55.43 (mL/min/1.73m2) Glucose 112 H (74-106) mg/dL Calcium 9.3 (8.5-10.1) mg/dL Magnesium 2.1 (1.8-2.4) mg/dL Total Bilirubin 0.55 (0.2-1.0) mg/dL AST 36 (15-37) U/L ALT 44 (16-63) U/L Alkaline Phosphatase 123 H (46-116) U/L Troponin I 9 (<or=76) ng/L NT-Pro-B Natriuret Pep 401 H (<300) pg/mL Total Protein 7.5 (6.4-8.2) g/dL Albumin 2.9 L (3.4-5.0) g/dL IgG Pending IgA Pending IgM Pending COVID-19 Source SARS-CoV-2 (PCR) (Negative) Influenza Type A (PCR) (Negative) Influenza Type B (PCR) (Negative) RSV (PCR) (Negative) Intake and Output - 24 Hour Total 07/10/24 15:05 thru 07/10/24 19:37 Intake Total 150 Balance 150 Weight 92.9 kg Intake: IV 150 Falls Risk Assessment History of Falls No History 07/10/24 15:37 Contributing Factors No Factors 07/10/24 15:37 Ambulatory Aids Independent 07/10/24 15:37 Tubes/Lines None 07/10/24 15:37 Gait Evaluation No gait disturbance 07/10/24 15:37 Fall Total Score 0 07/10/24 15:37 Level of Risk Standard/Low Risk 07/10/24 15:37 Problems (Last Reviewed 07/10/24 @ 19:43 by Lawson Espinal MD) Thrombocytosis (Acute) RSV infection (Acute) v v v v v v v v v Sending and/or Receiving Nurses: Please use comment section below to note any information pertinent to the patient hand-off not included above. Information / Comments:No questions. Report received from:[place]a
[2024-07-10] MEDS: Normal Saline Flush 10 ML SYR IVP (22:17)
[2024-07-10] MEDS: Enoxaparin 40 MG/0.4 ML SYR SC (22:53)
[2024-07-10] MEDS: Gabapentin 300 MG CAP 600 MG PO (22:54)
[2024-07-11] VITALS (8 sets, daily range): BP systolic 106; BP diastolic 64; PULSE 58–92; RESP 2–24; TEMP 36.8; O2SAT 93–98
[2024-07-11] MEDS: Albuterol/Ipratropium 3 ML UPD VIAL UPD ×3 (00:15→08:47)
[2024-07-11] MEDS: Melatonin 3 MG TAB 9 MG PO (00:26)
[2024-07-11 06:52] LABS: HGB 12.3 g/dL (13.5-17.5); MCH 29.5 pg (27.0-33.0); MCHC 33.2 % (32.0-36.0); MCV 89 fL (80-95); MPV 10.7 fL (8.0-11.0); Platelet Count 527 10^3/uL (130-400); RBC 4.17 10^6/uL (4.36-5.78); RDW 13.3 % (11.8-14.1); RDW-SD 42.6 fL; WBC 6.05 10^3/uL (4.4-10.8)
[2024-07-11 07:20] LABS: Anion Gap 11.3 mmol/L (3-11); BUN 26 mg/dL (7-18); CO2 22.7 mmol/L (21.0-32.0); CREATININE 1.5 mg/dL (0.70-1.30); Chloride 101 mmol/L (98-107); Estimated GFR 51.03 (mL/min/1.73m2); Glucose 124 mg/dL (74-106); Potassium 4.8 mmol/L (3.5-5.1); Sodium 135 mmol/L (136-145)
[2024-07-11] MEDS: Nystatin OINT 15 GM TUBE TP (08:24)
[2024-07-11] MEDS: Normal Saline Flush 10 ML SYR IVP (08:25)
[2024-07-11] MEDS: Benzonatate 200 MG CAP PO (08:26)
[2024-07-11] MEDS: Gabapentin 300 MG CAP 600 MG PO (08:26)
[2024-07-11] MEDS: Nystatin POWDER 60 GM JAR TP (08:27)
--- NOTE | 2024-07-11 11:42 | DSE_ITS ---
Date of service: 07/11/24 Time of Service: 11:42 DS: Diagnosis Discharge Diagnosis (1) RSV infection: Status: Acute (2) Thrombocytosis: Status: Acute Discharge Plan Disposition Patient Disposition: Home Condition: Stable Discharge Details Reason For Visit: +RSV Admit Date/Time: 07/10/24 19:58 Admit Provider: Lawson Espinal Attending Provider: Lawson Espinal Primary Care Provider: Rayray Rojas Hospital Course Hospital Course: This is a 64-year-old male patient complex past medical history including right upper lobectomy of spiculated mass, diffuse B cell lymphoma status postchemotherapy with recent hospitalization at [facility] due to gangrenous gallbladder status post lap sivakumar complicated with sepsis respiratory failure and RSV. He recovered from that and was discharged to home but states since being home he has not felt well or done well. He says he has been unable to tolerate a regular diet and has only been taking fluids. He presented to the emergency department with reports of worsening respiratory status. His workup in the emergency department was reassuring with unremarkable labs including a white blood cell count of 10 no anemia. BUN of 24 with a creatinine of 1.4 no electrolyte derangement or elevated liver functions. Serial troponins negative chest x-ray with no new infiltrates or consolidations. Viral swab remains positive for RSV. He was given IV fluids and IV Tylenol. He was afebrile and hemodynamically stable but SpO2 90-91 on room air. He was admitted under the hospitalist services overnight for observation. He was placed on 1 L nasal cannula but that was easily weaned off. In the morning he w as able to eat some breakfast which he states was the first solids he is eaten in about 2 weeks. He states he was feeling better and feels ready for discharge to home. He is being discharged to home with no new services there have been no changes in his medications. He was advised to continue advancing diet as tolerated and to keep outpatient follow-up appointments as previously directed. Discharge discussed with Dr. Harshil Flores and New Rx's Prescriptions: Continued famotidine 40 mg tablet 40 mg PO DAILY Qty: 60 11RF gabapentin 300 mg capsule See Rx Instructions .ROUTE .COMPLEX Qty: 120 3RF Dose Instruction: TAKE 2 CAPSULES BY MOUTH THREE TIMES A DAY Rx Instructions: TAKE 2 CAPSULES BY MOUTH THREE TIMES A DAY albuterol sulfate [ProAir HFA] 90 mcg/actuation HFA aerosol inhaler 1 - 2 puff Inhalation Q4H PRN Qty: 3 6RF loratadine [Claritin] 10 mg tablet 10 mg PO DAILY ondansetron 4 mg tablet,disintegrating 4 mg PO Q6H PRN PRN (Reason: nausea and vomiting) Qty: 20 0RF Discharge Instructions Instructions: Respiratory Syncytial Virus, Adult (DC) Additional Instructions: Continue to push fluids to stay well-hydrated drinking at least 6 to 8 glasses or more of water daily Take all your medications as prescribed Referrals: Rayray Rojas NP [Primary Care Provider] - Activity:: Activity as Tolerated Equipment/Supplies:: No Equipment Needed Diet:: As Tolerated DS: Summary Time Spent with Patient providing and/or coordinating discharge services: Less than 30 minutes Status at Discharge Functional status at discharge: independent ambulation Overall status at discharge: patient is progressing back to baseline Mental Status: mental status grossly normal Speech and Movement: speech and movement normal Mood: congruent mood Affect: normal affect Quality:SDOH Health Related Social Needs: No Data to Display Exam Narrative Exam Narrative: Elderly male of stated age in no acute distress head is atraumatic face is flush otherwise pink warm dry well-perfused nontoxic-appearing vital signs stable neurologic he is awake alert oriented no focal deficits psychiatric appropriate mood and affect eyes nonicteric noninjected EOMs intact oral mucosa slightly dry neck supple full range of motion cardiovascular regular rate and rhythm his respirations are even and unlabored Rales in the bases bilaterally abdomen is round nontender moves all extremities equally Psych Mental Status: mental status grossly normal Speech and Movement: speech and movement normal Mood: congruent mood Affect: normal affect DS: Data Vitals/I&O Vitals and I&O: Vital Signs Temperature 36.8 C 07/11/24 07:54 Temperature Source Temporal Artery Scan 07/11/24 07:54 Pulse 92 H 07/11/24 08:47 Pulse Rhythm Irregular 07/10/24 21:28 Pulse 80 07/10/24 20:31 Respiratory Rate 19 07/11/24 07:54 Respiratory Effort Normal, Non-Labored 07/10/24 21:28 Respiratory Depth Normal 07/10/24 21:28 Respiratory Pattern Normal 07/10/24 21:28 Blood Pressure 106/64 07/11/24 07:54 Blood Pressure Mean 110 07/10/24 20:31 Blood Pressure Position Sitting 07/10/24 20:49 Pulse Oximetry 93 07/11/24 09:00 Oxygen Delivery Method Room Air 07/11/24 09:00 Oxygen Flow Rate 0 07/11/24 09:00 Pain Level 4 07/10/24 21:28 Intake & Output 07/10/24 07/10/24 07/11/24 11:59 23:59 11:59 Intake Total 160 / 160 Output Total 175 / 175 Balance 160 / 160 -175 / -175 Weight 91.1 kg Intake: IV 160 / 160 Output: Urine 175 / 175 Other: Urine Color Light Nakita Urine Appearance Clear Urine Odor Strong Data Completed and Pending Labs on day of discharge: Labs from last 24 hours 07/11/24 07/10/24 07/10/24 06:33 18:17 16:37 WBC 6.05 RBC 4.17 L Hgb 12.3 L Hct 37.0 L MCV 89 MCH 29.5 MCHC 33.2 RDW 13.3 Plt Count 527 H MPV 10.7 Immature Gran % Neutrophils % Lymphocytes % Monocytes % Eosinophils % Basophils % Nucleated RBC % Absolute Neutrophils Absolute Lymphocytes Absolute Monocytes Absolute Eosinophils Absolute Basophils Sodium 135 L Potassium 4.8 Chloride 101 Carbon Dioxide 22.7 Anion Gap 11.3 H BUN 26 H Creatinine 1.5 H Est GFR (CKD-EPI 2020) 51.03 Glucose 124 H Calcium 9.0 Magnesium Total Bilirubin AST ALT Alkaline Phosphatase Troponin I Cancelled 9 NT-Pro-B Natriuret Pep Total Protein Albumin IgG IgA IgM COVID-19 Source SARS-CoV-2 (PCR) Influenza Type A (PCR) Influenza Type B (PCR) RSV (PCR) 07/10/24 07/10/24 15:55 15:30 WBC 10.92 H RBC 4.63 Hgb 13.7 Hct 40.8 MCV 88 MCH 29.6 MCHC 33.6 RDW 13.4 Plt Count 600 H MPV 10.7 Immature Gran % 0.5 Neutrophils % 84.3 Lymphocytes % 7.0 Monocytes % 6.5 Eosinophils % 1.2 Basophils % 0.5 Nucleated RBC % 0.0 Absolute Neutrophils 9.21 H Absolute Lymphocytes 0.76 L Absolute Monocytes 0.71 Absolute Eosinophils 0.13 Absolute Basophils 0.05 Sodium 136 Potassium 4.6 Chloride 101 Carbon Dioxide 24.5 Anion Gap 10.5 BUN 24 H Creatinine 1.4 H Est GFR (CKD-EPI 2020) 55.43 Glucose 112 H Calcium 9.3 Magnesium 2.1 Total Bilirubin 0.55 AST 36 ALT 44 Alkaline Phosphatase 123 H Troponin I 9 NT-Pro-B Natriuret Pep 401 H Total Protein 7.5 Albumin 2.9 L IgG Pending IgA Pending IgM Pending COVID-19 Source Nasopharynx SARS-CoV-2 (PCR) Negative Influenza Type A (PCR) Negative Influenza Type B (PCR) Negative RSV (PCR) Positive A* PFSH All Active Problems Exacerbation of reactive airway disease (Acute) Thrombocytosis (Acute) Anemia (Chronic) E coli bacteremia (Acute) RSV infection (Acute) Thrombocytopenia (Chronic) Acute cholecystitis (Acute) Ascending cholangitis (Acute) Septic shock (Acute) Vomiting (Acute) Abdominal pain (Acute) Cholelithiasis (Acute) Plantar fasciitis, left (Acute) Ureteral calculus, left (Acute) Hyperglycemia (Acute) Tubular adenoma (Acute ~04/2023) Bronchiectasis (Acute) Asthma (Chronic) History of lung cancer (Acute) Cough (Acute) Acne rosacea (Acute) Hearing loss (Acute) diminished hearing History of bronchoscopy (Acute) History of umbilical hernia repair (Acute 07/25/15) Hyperlipidemia (Acute) Hypertension (Acute) 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 Unknown, if any, significance Sciatica (Acute) recurrent left sided sciatica Status post rotator cuff repair (Acute) Medical History Injury of muscle of chest wall Encounter for screening colonoscopy Non-Hodgkin's lymphoma Type B. Last received chemotherapy 2020 Asthma exacerbation Acute viral syndrome Acute dyspnea Muscle spasm Back pain Hypertension Pt. denies Hyperlipidemia Surgical History History of colonoscopy (~04/2023) path sent History of lobectomy of lung Upper RIGHTlobe Rotator Cuff Repair LEFT X 2 Repair of umbilical hernia Bronchoscopy (09/27/14) Family History Mother Alcohol use disorder Father Cancer Brother Alcohol use disorder Cancer Diabetes Substance use disorder Maternal Grandmother Breast cancer Maternal Grandfather Alcohol use disorder Social History Smoking/Tobacco Use Status: Former Tobacco Use tobacco type: pipe and cigars Quit Date: 06/23/02 Tobacco: How many years used: 25 Smokeless tobacco user: other (pipe and cigar) Quit status: quit date established Smoking risk assessment performed?: Yes Alcohol Intake: former Year quit: 2010 Drug use: Never Substance use type: does not use Adopted: No Caregiver/Support person: No Household members: spouse Housing: house Number of Children: 5 number of grandchildren: 1 Communication Needs: Hard of Hearing Education Level: college Details: BS History and Education Do you need help understanding health information?: Rarely Sexually active: Yes Do you think of yourself as: straight/heterosexual Current gender identity: male What is your relationship status?: How often do you attend scientology or worship services?: 4 or more times per year Do you belong to any clubs or organized social groups?: no Panel score (0-1 are the most socially isolated patients): 2 What type of physical activity do you participate in: walking and other Details: Rowing Emely/Orthodox: [employer] [facility] emely needs: No Seatbelt use: sometimes Helmet use: No 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
--- NOTE | 2024-07-11 16:31 | CMPROGNOTE_ITS ---
Date of service: 07/11/24 Time of Service: 13:30 Care Management Progress Note Progress Note Text Progress Note Text: Zoran was admitted through the ED yesterday due to worsening respiratory symptoms. He was found to have RSV. Zoran has a complicated medical history, and he was discharged [place] [facility] [place] due to gangrenous cholecystitis s/p lap sivakumar complicated w/ sepsis, RSV infection, acute respiratory failure and septic shock. Zoran spent the night and was treated with updrafts and while not 100%, was quite improved by the morning and felt ready to go home. Zoran has a f/u appointment with one of his specialists on 07/20, and he will stay home from his job at the [employer] until then. Letter was written by CM stating such after speaking with the provider. Discharge Potential Discharge Needs: PCP F/U Appt and Other (specialist follow up) Anticipated Barriers to Discharge: None Identified Patient/Family Education Needs: Review discharge instructions, discuss Ask Me Three Transportation: Private vehicle Plan: Zoran was discharged home today feeling much improved, and with no new services. He was given a RX for nystatin, but otherwise no new medications or orders. He will f/u with his community providers and continue per his prescribed plan of care. Zoran transported home with his , Sherry. Social Determinants of Health Screening Social Determinants of Health last assessed: 07/11/24 Will the Patient Participate in the Screening?: Yes Do you worry about having a steady place to live?: no Problems where you live: no known problems In the past 12 months, have you had to go without electric, gas, oil or water in your home?: no Have you or anyone in your house had to go without enough food to eat?: no Has lack of transportation kept you from medical appointments or from doing things needed for daily living?: no Has anyone in your life made you feel unsafe or unsupported?: no How hard is it for you to pay for the very basics like food, housing, medical care, and heating? Would you say it is:: Not hard at all Do you want help finding or keeping work or a job?: I do not need or want help If for any reason you need help with day-to-day activities such as bathing, preparing meals, shopping, managing finances, etc., do you get the help you need?: I get all the help I need How often do you feel lonely or isolated from those around you?: Never Do you speak a language other than Ma[place] at home?: No Does the patient want assistance with any of the above?: No
[2024-07-12 09:32] LABS: IgA 43 mg/dL (85-499); IgG 1166 mg/dL (610-1616); IgM 64 mg/dL (35-242)
== END 2024-07-11 14:58 | disposition home or self-care (01) ==
LOC: ER 20:03 → MS 07-11 01:58
PROVIDERS: Admitting Provider Student in an Organized Health Care Education/Training Program; Emergency Provider Emergency Medicine; PCP Nurse Practitioner Family; Visit Provider Student in an Organized Health Care Education/Training Program
DX: J45.901 Unspecified asthma with (acute) exacerbation (principal); B97.4 Respiratory syncytial virus as the cause of diseases classified elsewhere; D80.1 Nonfamilial hypogammaglobulinemia; D75.838 Other thrombocytosis; Z90.2 Acquired absence of lung [part of]; R11.2 Nausea with vomiting, unspecified; R05.3 Chronic cough; R51.9 Headache, unspecified; D64.9 Anemia, unspecified; Z85.118 Personal history of other malignant neoplasm of bronchus and lung; I10 Essential (primary) hypertension; E78.5 Hyperlipidemia, unspecified; M54.32 Sciatica, left side; D47.2 Monoclonal gammopathy; C83.3A Diffuse large B-cell lymphoma, in remission; Z79.899 Other long term (current) drug therapy
CPT/HCPCS: 00123; 36415; 80048; 80053; 82784; 85027; 87637; 93005; 94640; 94761; 96365; 96367; 96372; 96375; 99285; J1650; 71046; 83735; 83880; 84484; 85025; 93010; 94667; 94760; 99222; 99239; J0131; J2405; J3475; J7512; J7613; J7620